=== PATIENT | female | born 1960 | race African-American/Black ===

== ENCOUNTER 2017-08-19 12:22 | Inpatient (IN) | payer SELFPAY ==
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
[2017-08-19 14:39] LABS: BASO % 2.2 % (0-2.0); EOS % 1.4 % (0-4.5); HEMATOCRIT 43.4 % (32.4-45.2); HEMOGLOBIN 14.2 GM/dL (10.7-15.3); LYMPH % 31.2 % (8-40); MCH 29.3 pg (25.7-33.7); MCHC 32.7 g/dl (32.0-36.0); MEAN CELL VOLUME 89.7 fl (80-96); MEAN PLT VOLUME 7.3 fl (7.5-11.1); MONO % 6.1 % (3.8-10.2); NEUT % 59.1 % (42.8-82.8); PLATELET COUNT 217 K/MM3 (134-434); RBC 4.83 M/mm3 (3.60-5.2); RDW 13.1 % (11.6-15.6); WHITE BLOOD COUNT 5.6 K/mm3 (4.0-10.0)
[2017-08-19 15:14] LABS: ANION GAP 7 (8-16); BILIRUBIN,TOTAL 0.5 mg/dL (0.2-1.0); BLOOD UREA NITROGEN 16 mg/dL (7-18); CALCIUM 8.7 mg/dL (8.5-10.1); CHLORIDE 108 mmol/L (98-107); CO2 27 mmol/L (21-32); CREATININE 0.8 mg/dL (0.55-1.02); GLUCOSE,RANDOM 83 mg/dL (74-106); SGPT/ALT 42 U/L (12-78); SODIUM 142 mmol/L (136-145); TOT PROT 7.5 g/dl (6.4-8.2)
[2017-08-19 15:15] LABS: ALK PHOS 103 U/L (45-117)
[2017-08-19 15:20] LABS: POTASSIUM 3.8 mmol/L (3.5-5.1); SGOT/AST 29 U/L (15-37)
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
[2017-08-19] MEDS ORDERED: ATORVASTATIN CA 80 MG TABLET (FP) PO ONE (22:00)
[2017-08-19] MEDS ORDERED: ASPIRIN 325 MG TABLET ONE (22:16)
[2017-08-19] MEDS ORDERED: ATORVASTATIN CA 80 MG TABLET (FP) ONE (22:16)
[2017-08-19] MEDS: ASPIRIN 325 MG TABLET PO SCH (22:42)
[2017-08-20 07:59] LABS: HEMATOCRIT 41.8 % (32.4-45.2); HEMOGLOBIN 13.6 GM/dL (10.7-15.3); MCH 29.2 pg (25.7-33.7); MCHC 32.5 g/dl (32.0-36.0); MEAN CELL VOLUME 90.1 fl (80-96); MEAN PLT VOLUME 7.7 fl (7.5-11.1); PLATELET COUNT 200 K/MM3 (134-434); RBC 4.64 M/mm3 (3.60-5.2); RDW 13.1 % (11.6-15.6); WHITE BLOOD COUNT 4.4 K/mm3 (4.0-10.0)
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
[2017-08-20 08:20] LABS: ALBUMIN 3.4 g/dl (3.4-5.0); ALK PHOS 93 U/L (45-117); ANION GAP 7 (8-16); BILIRUBIN,TOTAL 0.6 mg/dL (0.2-1.0); BLOOD UREA NITROGEN 17 mg/dL (7-18); CHLORIDE 109 mmol/L (98-107); CO2 26 mmol/L (21-32); CREATININE 0.8 mg/dL (0.55-1.02); GLUCOSE,RANDOM 84 mg/dL (74-106); MAGNESIUM 2.4 mg/dL (1.8-2.4); PHOSPHOROUS 3.6 mg/dL (2.5-4.9); POTASSIUM 3.5 mmol/L (3.5-5.1); SGOT/AST 15 U/L (15-37); SGPT/ALT 32 U/L (12-78); SODIUM 142 mmol/L (136-145); TOT PROT 6.7 g/dl (6.4-8.2)
--- NOTE | 2017-08-20 09:20 | EKG ---
Test Reason : Blood Pressure : / mmHG Vent. Rate : 079 BPM Atrial Rate : 079 BPM P-R Int : 172 ms QRS Dur : 088 ms QT Int : 392 ms P-R-T Axes : 038 001 023 degrees QTc Int : 449 ms NORMAL SINUS RHYTHM VOLTAGE CRITERIA FOR LEFT VENTRICULAR HYPERTROPHY NONSPECIFIC T WAVE ABNORMALITY ABNORMAL ECG WHEN COMPARED WITH ECG OF 30-DEC-2011 06:31, NO SIGNIFICANT CHANGE WAS FOUND Confirmed by LEONARDO GARCIA, BEATRICE ([id number]) on 08/20/2017 9:20:49 AM Referred By: Confirmed By:BEATRICE PATTERSON MD
[2017-08-20] MEDS: ASPIRIN 325 MG TABLET PO SCH (10:07)
[2017-08-20] MEDS: POTASSIUM CHLORIDE TABS 20 MEQ TABLET.ER (FP) PO ONE ×2 (10:07→10:14)
[2017-08-20] MEDS ORDERED: ASPIRIN 325 MG TABLET ONE (10:07)
[2017-08-20 11:23] VITALS: BMI 33.0
--- NOTE | 2017-08-20 12:15 | EKG ---
Test Reason : Blood Pressure : / mmHG Vent. Rate : 068 BPM Atrial Rate : 068 BPM P-R Int : 188 ms QRS Dur : 088 ms QT Int : 424 ms P-R-T Axes : 023 000 019 degrees QTc Int : 450 ms NORMAL SINUS RHYTHM VOLTAGE CRITERIA FOR LEFT VENTRICULAR HYPERTROPHY NONSPECIFIC T WAVE ABNORMALITY ABNORMAL ECG WHEN COMPARED WITH ECG OF 19-AUG-2017 14:46, NO SIGNIFICANT CHANGE WAS FOUND Confirmed by LEONARDO GARCIA, BEATRICE ([id number]) on 08/20/2017 12:15:52 PM Referred By: Confirmed By:BEATRICE PATTERSON MD
[2017-08-20] MEDS ORDERED: SODIUM CHLORIDE 1,000 ML IV SCH (12:45)
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
[2017-08-20 13:15] LABS: URINE APPEARANCE CLEAR; URINE BILIRUBIN NEGATIVE (NEGATIVE); URINE BLOOD 1+ (NEGATIVE); URINE COLOR YELLOW; URINE GLUCOSE (UA) NEGATIVE (NEGATIVE); URINE KETONE NEGATIVE (NEGATIVE); URINE LEUK ESTERASE NEGATIVE (NEGATIVE); URINE NITRITE NEGATIVE (NEGATIVE); URINE PROTEIN NEGATIVE (NEGATIVE); URINE UROBILINOGEN NEGATIVE mg/dL (0.2-1.0)
[2017-08-20 13:18] LABS: COCAINE, UR NEGATIVE ng/ml (CUTOFF=300); METHADONE, UR NEGATIVE ng/ml (CUTOFF=300); OPIATES, URI NEGATIVE ng/ml (CUTOFF=300); PHENCYCLIDINE,URINE NEGATIVE ng/ml (CUTOFF=25); URINE AMPHETAMINES NEGATIVE ng/ml (CUTOFF=500); URINE BARBITURATES NEGATIVE ng/ml (CUTOFF=200); URINE BENZODIAZEPINES NEGATIVE ng/ml (CUTOFF=200)
[2017-08-20 13:57] LABS: EPI CELLS RARE /HPF (FEW); URINE MUCUS RARE
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
[2017-08-20] MEDS: EZETIMIBE 10 MG TABLET (FP) PO SCH (14:50)
[2017-08-20] MEDS: HEPARIN NA (PORCINE) 5,000 UNITS/ML 1ML VIAL SQ SCH ×2 (14:53→21:51)
[2017-08-20] MEDS: PANTOPRAZOLE 40 MG TABLET (FP) PO SCH (14:53)
--- NOTE | 2017-08-20 17:45 | PN ---
Physical Exam: SUBJECTIVE: Patient seen and examined Pt reports that her weakness is improving. She denies headache, chest pain, SOB , abdominal pain, n/v/d/c, and dysuria. OBJECTIVE: Vital Signs Period Temp Pulse Resp BP Sys/Be Pulse Ox Last 24 Hr 97.7 F-98.9 F 64-73 14-18 122-154/70-91 97-99 GENERAL: The patient is awake, alert, and fully oriented, in no acute distress. HEENT: pupils round , R > L, reactive to light ( chronic per pt ) ., no facial droop, tongue and uvula at mid line , sensation in face NL. EOMI, NECK: Trachea midline, full range of motion, supple. LUNGS: Breath sounds equal, clear to auscultation bilaterally, no wheezes, no crackles, no accessory muscle use. HEART: Regular rate and rhythm, S1, S2 without murmur, rub or gallop. ABDOMEN: Soft, nontender, nondistended, normoactive bowel sounds, no guarding, no rebound, no hepatosplenomegaly, no masses. EXTREMITIES: 2+ pulses, warm, well-perfused, no edema. NEUROLOGICAL: pupils round , R > L, reactive to light ( chronic per pt ) ., no facial droop, tongue and uvula at mid line , sensation in face NL. EOMI, strength 5/5 in upper extremities proximally anad distally. LLE : 3/5 hip flexion , 4/5 Knee flexion an extension , 4/5 ankle dorsiflexion and plantar flexion . sensation to light touch NL. reflexes: 1+ biceps and knee jerk b/l Laboratory Results - last 24 hr 08/19/17 08/19/17 08/19/17 14:20 14:20 14:20 WBC RBC Hgb Hct MCV MCH MCHC RDW Plt Count MPV Sodium Potassium Chloride Carbon Dioxide Anion Gap BUN Creatinine Creat Clearance w eGFR Random Glucose Hemoglobin A1c % Calcium Phosphorus Magnesium Total Bilirubin AST ALT Alkaline Phosphatase Troponin I 0.03 Total Protein Albumin Triglycerides 112 Cholesterol 284 H Total LDL Cholesterol 194 H HDL Cholesterol 57 Vitamin B12 Serum Folate 39 H TSH 1.00 Urine Color Urine Appearance Urine pH Ur Specific [place] Urine Protein Urine Glucose (UA) Urine Ketones Urine Blood Urine Nitrite Urine Bilirubin Urine Urobilinogen Ur Leukocyte Esterase Urine WBC (Auto) Urine RBC (Auto) Ur Epithelial Cells Urine Mucus Opiates Screen Methadone Screen Barbiturate Screen Phencyclidine Screen Ur Amphetamines Screen MDMA (Ecstasy) Screen Benzodiazepines Screen Cocaine Screen U Marijuana (THC) Screen 08/20/17 08/20/17 08/20/17 06:00 06:00 06:00 WBC 4.4 RBC 4.64 Hgb 13.6 Hct 41.8 MCV 90.1 MCH 29.2 MCHC 32.5 RDW 13.1 Plt Count 200 MPV 7.7 Sodium 142 Potassium 3.5 Chloride 109 H Carbon Dioxide 26 Anion Gap 7 L BUN 17 Creatinine 0.8 Creat Clearance w eGFR > 60 Random Glucose 84 Hemoglobin A1c % 5.6 Calcium 9.0 Phosphorus 3.6 Magnesium 2.4 Total Bilirubin 0.6 AST 15 D ALT 32 D Alkaline Phosphatase 93 Troponin I Total Protein 6.7 Albumin 3.4 Triglycerides Cholesterol Total LDL Cholesterol HDL Cholesterol Vitamin B12 Serum Folate TSH Urine Color Urine Appearance Urine pH Ur Specific [place] Urine Protein Urine Glucose (UA) Urine Ketones Urine Blood Urine Nitrite Urine Bilirubin Urine Urobilinogen Ur Leukocyte Esterase Urine WBC (Auto) Urine RBC (Auto) Ur Epithelial Cells Urine Mucus Opiates Screen Methadone Screen Barbiturate Screen Phencyclidine Screen Ur Amphetamines Screen MDMA (Ecstasy) Screen Benzodiazepines Screen Cocaine Screen U Marijuana (THC) Screen 08/20/17 08/20/17 08/20/17 06:00 13:00 13:00 WBC RBC Hgb Hct MCV MCH MCHC RDW Plt Count MPV Sodium Potassium Chloride Carbon Dioxide Anion Gap BUN Creatinine Creat Clearance w eGFR Random Glucose Hemoglobin A1c % Calcium Phosphorus Magnesium Total Bilirubin AST ALT Alkaline Phosphatase Troponin I Total Protein Albumin Triglycerides Cholesterol Total LDL Cholesterol HDL Cholesterol Vitamin B12 529 Serum Folate TSH Urine Color Yellow Urine Appearance Clear Urine pH 6.0 Ur Specific [place] 1.032 Urine Protein Negative Urine Glucose (UA) Negative Urine Ketones Negative Urine Blood 1+ H Urine Nitrite Negative Urine Bilirubin Negative Urine Urobilinogen Negative Ur Leukocyte Esterase Negative Urine WBC (Auto) 2 Urine RBC (Auto) 3 Ur Epithelial Cells Rare Urine Mucus Rare Opiates Screen Negative Methadone Screen Negative Barbiturate Screen Negative Phencyclidine Screen Negative Ur Amphetamines Screen Negative MDMA (Ecstasy) Screen Negative Benzodiazepines Screen Negative Cocaine Screen Negative U Marijuana (THC) Screen Negative Active Medications Generic Name Dose Route Start Last Admin Trade Name Freq PRN Reason Stop Dose Admin Aspirin 325 mg 08/19/17 22:00 08/20/17 10:07 Asa - PO 325 mg DAILY YUDITH Administration Atorvastatin Calcium 80 mg 08/20/17 22:00 Lipitor - PO HS YUDITH Ezetimibe 10 mg 08/20/17 14:15 08/20/17 14:50 Zetia - PO 10 mg DAILY YUDITH Administration Heparin Sodium (Porcine) 5,000 unit 08/20/17 14:45 08/20/17 14:53 Heparin - SQ 5,000 unit TID YUDITH Administration Sodium Chloride 1,000 mls @ 100 mls/hr 08/20/17 12:45 08/20/17 13:42 Normal Saline - IV 08/21/17 12:44 100 mls/hr ASDIR YUDITH Administration Losartan Potassium 25 mg 08/21/17 10:00 Cozaar - PO DAILY YUDITH Pantoprazole Sodium 40 mg 08/20/17 14:45 08/20/17 14:53 Protonix - PO 40 mg DAILY YUDITH Administration ASSESSMENT/PLAN: 57F w/ hx of fibroids, anemia, and multiple of transfusions who presented with left-sided weakness, was found to have MRI evidence of an acute right pontine infarct. #acute right pontine infarct -continue ASA and lipitor -per cards, add losartan and zetia -per S&S, pt can tolerate regular diet w/ thin liquids -LUIGI and holter as out pt . d/w card #HLD -LDL of 194 -lipitor and zetia #heterogeneous thyroid nodules -TSH: wnl -f/u outpt for thyroid US #mandibular lesions -will f/u as out pt #FEN/ppx -NS @ 100cc/hr -K repleted -regular diet -protonix -SCDs Case discussed with attending, Dr. Avalos. -Carson Sood MD PGY1 Visit type - Emergency Visit Emergency Visit: Yes ED Registration Date: 08/19/17 Care time: The patient presented to the Emergency Department on the above date and was hospitalized for further evaluation of their emergent condition. - New Patient This patient is new to me today: No - Critical Care Critical Care patient: No
--- NOTE | 2017-08-20 20:31 | PN ---
Teaching Attending Note Name of Resident: Carson Sood ATTENDING PHYSICIAN STATEMENT I saw and evaluated the patient. I reviewed the resident's note and discussed the case with the resident. I agree with the resident's findings and plan as documented. SUBJECTIVE: seen at 10 am no fever or chills, L sided weakness better OBJECTIVE: NAD CV: RRR Lung s: CTAB ext : no edema Neuro : pupils round , R > L, reactive to light ( chronic per pt ) ., no facial droop, tongue and uvula at mid line , sensation in face NL. EOMI, strength 5/5 in upper extremities proximally anad distally. LLE : 3/5 hip flexion , 4/5 Knee flexion an extension , 4/5 ankle dorsiflexion and plantar flexion . sensation to light touch NL. reflexes: 1+ biceps and knee jerk b/l ASSESSMENT AND PLAN: 57 y/o lady with h/o anemia who presented with sudden onset L sided weakness. she was found to have acute R pontine infarct 1- Acute R pontine CVA : with old L sided subcortical and L basal ganglia infarcts . N o dissection was seen on CTA . cont gentle hydration as received IV dye x 2 cont statin and ASA tele speech , MBS PT 2- accidental b/l thyroid nodules. l TSH f/u with US as outpt 3- mandibular lesions: will f/u as otu pt
[2017-08-20] MEDS ORDERED: ATORVASTATIN CA 40 MG TABLET (FP) PO SCH ×2 (22:00)
[2017-08-21] MEDS: HEPARIN NA (PORCINE) 5,000 UNITS/ML 1ML VIAL SQ SCH ×2 (05:34→13:52)
[2017-08-21 08:17] LABS: BASO % 0.8 % (0-2.0); EOS % 2.3 % (0-4.5); HEMATOCRIT 41.9 % (32.4-45.2); HEMOGLOBIN 13.5 GM/dL (10.7-15.3); LYMPH % 34.3 % (8-40); MCH 28.9 pg (25.7-33.7); MCHC 32.1 g/dl (32.0-36.0); MEAN CELL VOLUME 90.1 fl (80-96); MEAN PLT VOLUME 7.5 fl (7.5-11.1); MONO % 7.1 % (3.8-10.2); NEUT % 55.5 % (42.8-82.8); PLATELET COUNT 200 K/MM3 (134-434); RBC 4.66 M/mm3 (3.60-5.2); WHITE BLOOD COUNT 3.8 K/mm3 (4.0-10.0)
[2017-08-21 08:45] LABS: CHLORIDE 110 mmol/L (98-107); POTASSIUM 3.7 mmol/L (3.5-5.1); SODIUM 142 mmol/L (136-145)
[2017-08-21 09:09] LABS: ALBUMIN 3.3 g/dl (3.4-5.0); ALK PHOS 92 U/L (45-117); ANION GAP 6 (8-16); BILIRUBIN,TOTAL 0.9 mg/dL (0.2-1.0); BLOOD UREA NITROGEN 12 mg/dL (7-18); CALCIUM 8.2 mg/dL (8.5-10.1); CO2 26 mmol/L (21-32); CREATININE 0.8 mg/dL (0.55-1.02); GLUCOSE,RANDOM 89 mg/dL (74-106); SGOT/AST 13 U/L (15-37); SGPT/ALT 28 U/L (12-78); TOT PROT 6.5 g/dl (6.4-8.2)
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
[2017-08-21] MEDS: PANTOPRAZOLE 40 MG TABLET (FP) PO SCH (09:47)
[2017-08-21] MEDS: ASPIRIN 325 MG TABLET PO SCH (09:47)
[2017-08-21] MEDS: EZETIMIBE 10 MG TABLET (FP) PO SCH (09:48)
[2017-08-21] MEDS ORDERED: LOSARTAN POTASSIUM 25 MG TABLET PO SCH (10:00)
--- NOTE | 2017-08-21 10:21 | PN ---
Progress Note, Physician History of Present Illness: Left-sided weakness improving. - Current Medication List Current Medications: Active Medications Aspirin (Asa -) 325 mg PO DAILY [facility] Last Admin: 08/21/17 09:47 Dose: 325 mg Atorvastatin Calcium (Lipitor -) 80 mg PO HS [facility] Last Admin: 08/20/17 21:51 Dose: 80 mg Ezetimibe (Zetia -) 10 mg PO DAILY [facility] Last Admin: 08/21/17 09:48 Dose: 10 mg Heparin Sodium (Porcine) (Heparin -) 5,000 unit SQ TID [facility] Last Admin: 08/21/17 05:34 Dose: 5,000 unit Sodium Chloride (Normal Saline -) 1,000 mls @ 100 mls/hr IV ASDIR [facility] Stop: 08/21/17 12:44 Last Admin: 08/20/17 13:42 Dose: 100 mls/hr Losartan Potassium (Cozaar -) 25 mg PO DAILY [facility] Last Admin: 08/21/17 09:47 Dose: 25 mg Pantoprazole Sodium (Protonix -) 40 mg PO DAILY [facility] Last Admin: 08/21/17 09:47 Dose: 40 mg - Objective Vital Signs: Vital Signs Temperature 98 F 08/21/17 10:00 Pulse Rate 74 08/21/17 10:00 Respiratory Rate 18 08/21/17 10:00 Blood Pressure 164/90 08/21/17 10:00 O2 Sat by Pulse Oximetry (%) 97 08/21/17 02:00 Constitutional: Yes: No Distress, Calm Neck: Yes: Supple Cardiovascular: Yes: Regular Rate and Rhythm Respiratory: Yes: Regular, CTA Bilaterally Gastrointestinal: Yes: Normal Bowel Sounds, Soft Edema: No Labs: CBC, BMP 08/21/17 07:09 08/21/17 07:09 - ....Imaging Cat Scan: Report Reviewed (CTA neck without sig stenosis) EKG: Report Reviewed (Tele: NSR w/o PAF) Problem List - Problems (1) Right pontine stroke Code(s): I63.50 - CEREB INFRC DUE TO UNSP OCCLS OR STENOS OF UNSP CEREB ARTERY (2) Hypertensive cardiomyopathy Code(s): I11.9 - HYPERTENSIVE HEART DISEASE WITHOUT HEART FAILURE; I43 - CARDIOMYOPATHY IN DISEASES CLASSIFIED ELSEWHERE Qualifiers: Heart failure presence: without heart failure Qualified Code(s): I11.9 - Hypertensive heart disease without heart failure; I43 - Cardiomyopathy in diseases classified elsewhere; I43 - Cardiomyopathy in diseases classified elsewhere; I43 - Cardiomyopathy in diseases classified elsewhere; I43 - Cardiomyopathy in diseases classified elsewhere (3) Hyperlipidemia Code(s): E78.5 - HYPERLIPIDEMIA, UNSPECIFIED Qualifiers: Hyperlipidemia type: pure hypercholesterolemia Qualified Code(s): E78.00 - Pure hypercholesterolemia, unspecified; E78.0 - Pure hypercholesterolemia Assessment/Plan 08/19/17 Normal LV size and fxn, mild-modMR, mild TR, mild CHANDA 1. Acute pontine stroke 2. HTN/HCVD 3. Hyperlipidemia P:1. ASA 325 qd, Lipitor 80 qd, increase losartan 50 qd, Zetia 10 qd, may require PCSK9 as outpatient if LDL does not reach goal 2. engine monitor r/o PAF thus far negative, consider outpatient arrhythmia monitor if unremarkable 3. LUIGI recommended by neurology, may be performed as outpatient americo with no PAF on monitor 4. DVT and GI prophylaxis, await PT eval.
--- NOTE | 2017-08-21 11:50 | PN ---
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 Tolerating diet well without overt signs of dysphagia. Selected Entries 08/21/17 08/21/17 08/21/17 02:00 06:00 10:00 Breakfast Temperature 98 F 98.6 F 98 F 08/21/17 11:15 Breakfast 100% Temperature No further f/u indicated.
--- NOTE | 2017-08-21 17:12 | PN ---
Teaching Attending Note Name of Resident: Carson Sood ATTENDING PHYSICIAN STATEMENT I saw and evaluated the patient. I reviewed the resident's note and discussed the case with the resident. I agree with the resident's findings and plan as documented. SUBJECTIVE: no fever or chills, feels better today , gait has much improved OBJECTIVE: NAD CV: RRR Lungs: CTAB ext : no edema Neuro: pupils round, R > L, reactive to light ., no facial droop, tongue and uvula at mid line, sensation in face NL. EOMI, strength 5/5 in upper and lower extremities proximally and distally.. sensation to light touch decreased in L side of body and face Reflexes: 2+ knee jerk and biceps b/l ASSESSMENT AND PLAN: 57 y/o lady with h/o anemia who presented with sudden onset L sided weakness. she was found to have acute R pontine infarct 1- Acute R pontine CVA: with old L sided subcortical and L basal ganglia infarcts . No dissection was seen on CTA . cont statin and ASA zetia and ARB regular diet , ow salt and fat LUIGI and holter as out pt . d/w card 2- accidental b/l thyroid nodules. NL TSH f/u with US as outpt 3- mandibular lesions: will f/u as out pt I walked patient myself, steady and doing well. dc home
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
[2017-08-21 19:26] VITALS: BP 167/94; PULSE 70; TEMP 98.8
== END 2017-08-21 18:47 | disposition home or self-care (01) | DRG 45 ==
LOC: JER 12:22 → JERBED 20:01 → OBSVTOIN 21:54 → J4W 08-20 18:55
PROVIDERS: ADMIT Internal Medicine; ATTEND Internal Medicine
DX: I63.8 Other cerebral infarction (principal); R42 Dizziness and giddiness; R20.0 Anesthesia of skin; I51.7 Cardiomegaly; D25.9 Leiomyoma of uterus, unspecified; D64.9 Anemia, unspecified; R29.705 NIHSS score 5; I11.9 Hypertensive heart disease without heart failure; E78.5 Hyperlipidemia, unspecified; E04.2 Nontoxic multinodular goiter; J32.0 Chronic maxillary sinusitis; G81.94 Hemiplegia, unspecified affecting left nondominant side
CPT/HCPCS: 36415; 70496-TC; 70498-TC; 70551-TC; 80053; 80061; 80307; 81003; 81015; 82607; 82746; 83036; 83721; 83735; 84100; 84443; 84484; 85025; 85027; 93005; 93010; 93306-TC; 93880-TC; 97116-GP; 97161-GP; 99285-25; G0378; J1644

== ENCOUNTER 2017-09-24 16:26 | Inpatient (IN) | payer OTHER ==
--- NOTE | 2017-09-24 17:39 | PDOC ---
Rapid Medical Evaluation Time Seen by Provider: 09/24/17 17:32 Medical Evaluation: Allergies Allergy/AdvReac Type Severity Reaction Status Date / Time No Known Allergies Allergy Verified 08/19/17 12:32 09/24/17 17:32 I have performed a brief in-person evaluation of this patient. The patient presents with a chief complaint of: right eye "shadow with colors" since friday, gradual onset severe PATEL all last night "worst headache of life", feels like i'm "walking slower" - had stroke aug 19, sent by Dr. Rodarte Pertinent physical exam findings: no focal neuro deficits on exam I have ordered the following: head CT, labs The patient will proceed to the ED for further evaluation. Discharge Disposition - Diagnosis Headache - Referrals - Patient Instructions - Post Discharge Activity
[2017-09-24 18:18] LABS: BASO % 0.9 % (0-2.0); EOS % 1.4 % (0-4.5); HEMATOCRIT 43.3 % (32.4-45.2); HEMOGLOBIN 14.5 GM/dL (10.7-15.3); LYMPH % 34.7 % (8-40); MCH 29.6 pg (25.7-33.7); MCHC 33.5 g/dl (32.0-36.0); MEAN CELL VOLUME 88.4 fl (80-96); MEAN PLT VOLUME 7.6 fl (7.5-11.1); MONO % 8.4 % (3.8-10.2); NEUT % 54.6 % (42.8-82.8); PLATELET COUNT 198 K/MM3 (134-434); RBC 4.89 M/mm3 (3.60-5.2); RDW 12.8 % (11.6-15.6)
[2017-09-24 18:55] LABS: INR 1.1 (0.82-1.09); PROTHROMBIN TIME (PATIENT) 12.4 SEC (9.98-11.88)
[2017-09-24 19:13] LABS: ALBUMIN 4.3 g/dl (3.4-5.0); ANION GAP 9 (8-16); BILIRUBIN,TOTAL 0.9 mg/dL (0.2-1.0); BLOOD UREA NITROGEN 8 mg/dL (7-18); CALCIUM 9.7 mg/dL (8.5-10.1); CHLORIDE 106 mmol/L (98-107); CO2 27 mmol/L (21-32); CREATININE 0.9 mg/dL (0.55-1.02); GLUCOSE,RANDOM 101 mg/dL (74-106); POTASSIUM 3.6 mmol/L (3.5-5.1); SGOT/AST 15 U/L (15-37); SGPT/ALT 27 U/L (12-78); SODIUM 142 mmol/L (136-145); TOT PROT 7.8 g/dl (6.4-8.2)
[2017-09-24 19:15] LABS: ALK PHOS 90 U/L (45-117)
--- NOTE | 2017-09-24 21:15 | PDOC ---
History of Present Illness - General Chief Complaint: Headache Stated Complaint: PCP SENT/HEADACHE Time Seen by Provider: 09/24/17 17:32 History Source: Patient - History of Present Illness Initial Comments: 09/24/17 21:38 57-year-old female complaining of right-sided headache which started yesterday and this morning radiating to the occipital head. Patient reports that 2 days ago noted some visual changes where shadows were seen with colors. patient s/p CVA " right Pontine infarct" Aug 19 patient currently on aspirin daily. Past History - Past Medical History Allergies/Adverse Reactions: Allergies Allergy/AdvReac Type Severity Reaction Status Date / Time No Known Allergies Allergy Verified 09/24/17 17:32 Home Medications: Ambulatory Orders Aspirin [ASA -] 325 mg PO DAILY #30 tablet 08/21/17 Atorvastatin Ca [Lipitor] 80 mg PO HS #60 tablet 08/21/17 Ezetimibe [Zetia -] 10 mg PO DAILY #30 tablet 08/21/17 Losartan Potassium [Cozaar -] 50 mg PO DAILY #30 tablet 08/21/17 Pantoprazole Sodium [Protonix -] 40 mg PO DAILY #30 tablet.ec 08/21/17 Anemia: Yes (BLOOD TRANSFUSIONS) Cardiac Disorders: Yes (ENLARGED HEART) CVA: Yes (LT SIDE WEAKNESS) COPD: No - Immunization History Immunization Up to Date: Yes - Suicide/Smoking/Psychosocial Hx Smoking Status: No Smoking History: Never smoked Have you smoked in the past 12 months: No Number of Cigarettes Smoked Daily: 0 Information on smoking cessation initiated: No Hx Alcohol Use: No Drug/Substance Use Hx: No Substance Use Type: None Review of Systems - Review of Systems Able to Perform ROS?: Yes Is the patient limited Georgian proficient: No HEENTM: Yes: Recent change in vision ABD/GI: Yes: Diarrhea, Nausea Integumentary: No: Symptoms Reported, See HPI, Bruising, Change in Color, Change in Hair/Nails, Dryness, Erythema, Flushing, Lesions, Lumps, Pallor, Pruritus, Rash, Sweating, Other Neurological: Yes: Headache. No: Symptoms reported, See HPI, Numbness, Paresthesia, Pre-Existing Deficit, Seizure, Tingling, Tremors, Weakness, Unsteady Gait, Ataxia, Dizziness, Other *Physical Exam - Vital Signs Last Vital Signs Temp Pulse Resp BP Pulse Ox 98.2 F 89 16 153/96 98 09/24/17 17:34 09/24/17 17:34 09/24/17 17:34 09/24/17 17:34 09/24/17 17:34 - Physical Exam General Appearance: Yes: Appropriately Dressed Respiratory/Chest: positive: Lungs Clear, Normal Breath Sounds Cardiovascular: positive: Regular Rhythm, Regular Rate Gastrointestinal/Abdominal: positive: Normal Bowel Sounds, Soft. negative: Tender Musculoskeletal: positive: Normal Inspection Neurologic: positive: Alert, Normal Mood/Affect, Other (see NIH stroke scale. ) Heart Score/ECG Review - ECG Intrepretation Rhythm: Regular Rhythm Comment:: 09/24/17 22:40 NSR: 69 bpm, T wave abnormality consider lateral ischemia ED Treatment Course - LABORATORY CBC & Chemistry Diagram: 09/24/17 18:00 09/24/17 18:06 - ADDITIONAL ORDERS Additional order review: Laboratory Results 09/24/17 09/24/17 18:06 18:06 PT with INR 12.40 H INR 1.10 Sodium 142 Potassium 3.6 Chloride 106 Carbon Dioxide 27 Anion Gap 9 BUN 8 Creatinine 0.9 Creat Clearance w eGFR > 60 Random Glucose 101 Calcium 9.7 Total Bilirubin 0.9 AST 15 ALT 27 Alkaline Phosphatase 90 Creatine Kinase 153 Creatine Kinase Index 0.7 CK-MB (CK-2) 1.205 Troponin I 0.05 Total Protein 7.8 Albumin 4.3 09/24/17 18:00 RBC 4.89 MCV 88.4 MCHC 33.5 RDW 12.8 MPV 7.6 Neutrophils % 54.6 Lymphocytes % 34.7 Monocytes % 8.4 Eosinophils % 1.4 Basophils % 0.9 Progress Note - Progress Note Progress Note: A: Acute Medical Decision Making - Critical Care Time Total Critical Care Time (minutes): 60 Critical Care Statement: The care of this patient involved high complexity decision making to prevent further life threatening deterioration of the patient 's condition and/or to evaluate & treat vital organ system(s) failure or risk of failure. - Medical Decision Making 09/24/17 21:00 Patient signed out to [facility] (ICU) . accepted for ICU admission. patient signed out to Dr. Santos/ Jean for further management of care. *DC/Admit/Observation/Transfer Diagnosis at time of Disposition: Hemorrhagic cerebrovascular accident (CVA) Headache Qualifiers: Headache type: unspecified Headache chronicity pattern: acute headache Intractability: not intractable Qualified Code(s): R51 - Headache - Discharge Dispostion Admit: Yes - Referrals - Patient Instructions - Post Discharge Activity NIH Stroke Scale - Last Known Well Date/Time & Onset Date Last Known Well: 09/21/17 - Initial Evaluation Level of consciousness: Alert Ask patient the month and their age: Answers both correctly Ask patient to open & close eyes; make fist and let go: Obeys both correctly Best gaze (horizontal eye movement): Normal Visual field testing: Partial hemianopia Facial paresis (Show teeth/raise eyebrows/close eyes tight): Minor paralysis ( flattened nasolabial fold, asymmetry on smiling) Motor Function: Left Arm: Normal Motor Function: Right Arm: Normal (extends arm 90 (or 45) degrees for 10 seconds without drift Motor Function: Left Leg: Drift Motor Function: Right Leg: Normal (extends leg 30 degrees for 5 seconds without drift) Limb Ataxia: Present in one limb Sensory(Use pinprick test arms,legs,trunk,face/side to side): Normal Best language (Describe picture, name items, read sentences): No Aphasia Dysarthria (read several words): Normal articulation Extinction and Inattention: No abnormality - Total Score NIH Stroke Scale Score: 4
[2017-09-24] MEDS ORDERED: NICARDIPINE 25 MG in DEXTROSE 5%-WATER - 240 ML IVPB SCH (22:00)
[2017-09-24] MEDS ORDERED: niCARdipine HCL 25 MG/10 ML AMPUL IVPB ONE (22:18)
--- NOTE | 2017-09-24 22:19 | CON.NEURO ---
Consult Consult Specialty:: NEUROLOGY- MEGAN GARCIA-FOR DR. CONTRERAS Reason for Consultation:: Headache/intraparenchymal hge - History of Present Illness History of Present Illness: 57-year-old female complaining of right-sided headache which started yesterday and this morning radiating to the occipital head. Patient reports that 2 days ago noted some visual changes where shadows were seen with colors. patient s/p CVA " right Pontine infarct" Aug 19 patient currently on aspirin daily. Pt. also tells me she had a "ablation" a few years ago for afib, was on ASA at home, she has a hx. of HTN, Hyperlipidemia. She reports Friday night experiencing "flashes and reflections" in right visual field , last night had headache, sudden onset holocephalgic with nausea, 6/10 intensity, this morning PATEL recurred with 10/10 intensity, she had a bout of diarrhea and PATEL disappeared. Denies all other neurologic symptoms. 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2 F 09/24/17 17:34 Pulse Rate 89 09/24/17 17:34 Respiratory Rate 16 09/24/17 17:34 Blood Pressure 153/96 09/24/17 17:34 O2 Sat by Pulse Oximetry (%) 98 09/24/17 17:34 Labs: CBC, BMP 09/24/17 18:00 09/24/17 18:06 INR, PTT INR 1.10 (0.82-1.09) 09/24/17 18:06 - Neuro Exam Level Of Consciousness: Yes: Alert, Oriented to Person, Oriented to Place, Oriented to Time Eyes: Yes: JOSE CARLOS (?? right inferior quadrantanopsia) Cranial Nerves II-XII Intact: No (slight left diminished NLF) DTR's: 2+ Left Bicep, 2+ Right Bicep, 2+ Left Tricep, 2+ Right Tricep, 2+ Left Brachioradialis, 2+ Right Brachioradialis, 2+ Left Achilles, 2+ Right Achilles Babinski: Absent Response to light touch: Normal Response to pain prick: Normal Response to temperature: Normal Response to vibration: Normal Motor Strength: 5/5: Left Arm, Right Arm, Left Leg, Right Leg Gait: Normal Imaging - Results Cat Scan: Report Reviewed (small 2.4x 1.3 cm acute hge in left occipital lobe abutting trigone of left occipital horn with minimal hge in occipital horn trigone.) Assessment/Plan Pt. with acute left occipital lobe hge-etiologies include underlying avm, venous hge, less likely mass. There is minimal edema surrounding hge, no mass effect/shift Suggest: Admit to ICU Hold ASA Keep hob at 60 degrees MRI brain and MRA in am. Neurosurgery consult- Dr. Luna-I have informed of patient Thank you, Aurora Garcia MD.
[2017-09-24 22:27] LABS: INR 1.13 (0.82-1.09); PROTHROMBIN TIME (PATIENT) 12.8 SEC (9.98-11.88)
[2017-09-24 22:30] LABS: ACTIVATED PTT 35.4 SECONDS (26.9-34.4)
--- NOTE | 2017-09-25 00:01 | HP ---
CHIEF COMPLAINT: Headache, vision changes PCP: Dr. Pravin Urbina HISTORY OF PRESENT ILLNESS: The patient is a 57 yo f w/ PMH HTN, CVA w/ residual left sided weakness who comes into the ED c/o vision changes and headache for the last 2 days. Patient states that her symptoms began Friday when she experienced visual changes in the right upper outer quadrant of her vision. Patient describes these changes as "jagged edges with different colors in them." On friday night into friday, the patient began to develop a sudden onset, 9/10 in intensity headache which involved her whole head and was worst in the occipital region. Over the course of the day, the headache increased in intensity and became associated with nausea and diarrhea. Patient states her headache is no longer present, but continues to experience visual changes which she now describes as "shadows and colors." Patient denies chest pain, SOB, dizziness, weakness. ER course was notable for: (1) SBP 153/96 (2) CT showing 2.4x 1.3x 1.3 cm hemorrhage in the left occipital horn (3) Recent Travel: none PAST MEDICAL HISTORY: Anemia Cardiomengaly HLD HTN CVA (right pontine infarct and left sided residual weakness) on 08/19/17 PAST SURGICAL HISTORY: Embolization for uterine fibroids Social History: Smoking: denies Alcohol: denies Drugs: denies Family History: CAD and AMI in two bothers another brother on hemodialysis Allergies No Known Allergies Allergy (Verified 09/24/17 17:32) HOME MEDICATIONS: Home Medications Medication Instructions Recorded Aspirin [ASA -] 325 mg PO DAILY #30 tablet 08/21/17 Atorvastatin Ca [Lipitor] 80 mg PO HS #60 tablet 08/21/17 Ezetimibe [Zetia -] 10 mg PO DAILY #30 tablet 08/21/17 Losartan Potassium [Cozaar -] 50 mg PO DAILY #30 tablet 08/21/17 Pantoprazole Sodium [Protonix -] 40 mg PO DAILY #30 tablet.ec 08/21/17 REVIEW OF SYSTEMS CONSTITUTIONAL: Absent: fever, chills, diaphoresis, generalized weakness, malaise, loss of appetite, weight change HEENT: visual changes Absent: rhinorrhea, nasal congestion, throat pain, throat swelling, difficulty swallowing, mouth swelling, ear pain, eye pain. CARDIOVASCULAR: Absent: chest pain, syncope, palpitations, irregular heart rate, lightheadedness , peripheral edema RESPIRATORY: Absent: cough, shortness of breath, dyspnea with exertion, orthopnea, wheezing, stridor, hemoptysis GASTROINTESTINAL: Absent: abdominal pain, abdominal distension, nausea, vomiting, diarrhea, constipation, melena, hematochezia GENITOURINARY: Absent: dysuria, frequency, urgency, hesitancy, hematuria, flank pain, genital pain MUSCULOSKELETAL: Absent: myalgia, arthralgia, joint swelling, back pain, neck pain SKIN: Absent: rash, itching, pallor HEMATOLOGIC/IMMUNOLOGIC: Absent: easy bleeding, easy bruising, lymphadenopathy, frequent infections ENDOCRINE: Absent: unexplained weight gain, unexplained weight loss, heat intolerance, cold intolerance NEUROLOGIC: headache Absent: focal weakness or paresthesias, dizziness, unsteady gait, seizure, mental status changes, bladder or bowel incontinence PSYCHIATRIC: Absent: anxiety, depression, suicidal or homicidal ideation, hallucinations. PHYSICAL EXAMINATION Vital Signs - 24 hr 09/24/17 09/24/17 09/24/17 17:34 23:00 23:37 Temperature 98.2 F Pulse Rate 89 81 Pulse Rate [ 71 Left Radial] Respiratory 16 Rate Blood Pressure 153/96 166/93 Blood Pressure 151/81 [Left Arm] O2 Sat by Pulse 98 Oximetry (%) GENERAL: Awake, alert, and fully oriented, in no acute distress. HEAD: Normal with no signs of trauma. EYES: Pupils equal, round and reactive to light, extraocular movements intact, sclera anicteric, conjunctiva clear. No lid lag. NECK: Normal range of motion, supple without lymphadenopathy, JVD, or masses. LUNGS: Breath sounds equal, clear to auscultation bilaterally. No wheezes, and no crackles. No accessory muscle use. HEART: Regular rate and rhythm, normal S1 and S2 without murmur, rub or gallop. ABDOMEN: Soft, nontender, not distended, normoactive bowel sounds, no guarding, no rebound, no masses. No hepatomegaly or splenomegaly. NEUROLOGICAL: Cranial nerves II-X intact. Normal speech. gait not observed. Strength 5/5 in all 4 extremities. Decrease sensation over right arm and lower face PSYCHIATRIC: Cooperative. Good eye contact. Appropriate mood and affect. SKIN: Warm, dry, normal turgor, no rashes or lesions noted, normal capillary refill. Laboratory Results - last 24 hr 09/24/17 09/24/17 09/24/17 18:00 18:06 18:06 WBC 6.0 D RBC 4.89 Hgb 14.5 Hct 43.3 MCV 88.4 MCH 29.6 MCHC 33.5 RDW 12.8 Plt Count 198 MPV 7.6 Neutrophils % 54.6 Lymphocytes % 34.7 Monocytes % 8.4 Eosinophils % 1.4 Basophils % 0.9 PT with INR 12.40 H INR 1.10 PTT (Actin FS) Sodium 142 Potassium 3.6 Chloride 106 Carbon Dioxide 27 Anion Gap 9 BUN 8 Creatinine 0.9 Creat Clearance w eGFR > 60 Random Glucose 101 Calcium 9.7 Total Bilirubin 0.9 AST 15 ALT 27 Alkaline Phosphatase 90 Creatine Kinase 153 Creatine Kinase Index 0.7 CK-MB (CK-2) 1.205 Troponin I 0.05 Total Protein 7.8 Albumin 4.3 Blood Type Antibody Screen 09/24/17 09/24/17 21:32 21:32 WBC RBC Hgb Hct MCV MCH MCHC RDW Plt Count MPV Neutrophils % Lymphocytes % Monocytes % Eosinophils % Basophils % PT with INR 12.80 H INR 1.13 PTT (Actin FS) 35.4 H Sodium Potassium Chloride Carbon Dioxide Anion Gap BUN Creatinine Creat Clearance w eGFR Random Glucose Calcium Total Bilirubin AST ALT Alkaline Phosphatase Creatine Kinase Creatine Kinase Index CK-MB (CK-2) Troponin I Total Protein Albumin Blood Type O POSITIVE Antibody Screen Negative ASSESSMENT/PLAN: The patient is a 57 yo f being admitted to the ICU for left occipital hemorrhagic stroke. #Left occipital hemorrhagic stroke -full stroke workup noted on previous admission; no need to repeat -Neuro has seen the patient in the ED -Neurosurgery consulted -Hold ASA -Head of bed elevated to 60 degrees -consider MRI/MRA in AM -Neuro checks Q2H -physical therapy consult -speech and swallow consult -CBC, CMP, coags, type and screen, mag, phos in AM #HTN -s/p nifedipine in ED -titrate BP meds to maintain SBP <140 -Holding home meds for now #HLD -holding home meds for now #Hx of anemia -pt w/ normal Hb today -will monitor H&H #FEN -no fluids indicated at this time -lytes WNL, will monitor -NPO #prophy -DVT: SCDs #Dispo -Admit to ICU Visit type - Emergency Visit Emergency Visit: Yes ED Registration Date: 09/24/17 Care time: The patient presented to the Emergency Department on the above date and was hospitalized for further evaluation of their emergent condition. - New Patient This patient is new to me today: Yes Date on this admission: 09/25/17 - Critical Care Critical Care patient: Yes Total Critical Care Time (in minutes): 40 Critical Care Statement: The care of this patient involved high complexity decision making to prevent further life threatening deterioration of the patient 's condition and/or to evaluate & treat vital organ system(s) failure or risk of failure.
--- NOTE | 2017-09-25 00:12 | PN ---
Teaching Attending Note Name of Resident: Sandip Winters ATTENDING PHYSICIAN STATEMENT I saw and evaluated the patient. I reviewed the resident's note and discussed the case with the resident. I agree with the resident's findings and plan as documented. SUBJECTIVE: 57yo F with PMH CVA with residual L sided weakness, HTN, fibroids and anemia presented to the ER with sudden onset of PATEL with visual changes. Visual changes began 2 days ago in the R eye. pt reports the edge of items are blurred, Like something is in her eye. Yesterday morning started to develop PATEL that affected the entire head. Her vision worsened with distorted colors. also noted to feel more weak on the L side. denies CP, SOB, fever, chills, N/V/C/D, gait instability. states she did not take her medications today. but has been complaint. OBJECTIVE: Last Vital Signs Temp Pulse Resp BP Pulse Ox 98.2 F 71 16 151/81 98 09/24/17 17:34 09/24/17 23:37 09/24/17 17:34 09/24/17 23:37 09/24/17 17:34 General NAD CV S1 S2 RRR no murmur/rub/gallop Lungs CTA B/L no wheezing/rales/rhonchi Neuro CN II-XII grossly intact, decreased sensation R forearm in radial distribution, strength equal in B/L UE, 4/5 LLE with decreased sensation. 5/5 RLE with intact sensation. negative pronator drift, negative dysmetria/ dysdakinesia, negative heel to britton, gait testing deferred ASSESSMENT AND PLAN: 57yo F with PMH CVA with residual L sided weakness, HTN, fibroids and anemia presented to the ER with sudden onset of PATEL with visual changes and found to have an acute L occipital hemorrhage 1. Acute L occipital Hemorrhage- MICU admission. NIHSS 4. MRI/MRA brain in the AM. frequent neurochecks. elevated HOB. Neuro and neurosurg consulted. will consult ELEVATOR EXAMINER and PT. will be monitored in MICU on continuous cardiac monitoring. reviewed recent workup done last month, echo/carotid/TSH/lipid panel. no need to repeat at this time. hold asa 2. HTN- permissive HTN. started on nicardipine ggt in the ER. titrate to SBP < 140. 3. anemia- Hgb at baseline. no inidcation for txn. 4. DVT ppx- SCD The care of this patient involved high complexity decision making to prevent further life threatening deterioration of the patient's condition and/or to evaluate & treat vital organ system(s) failure or risk of failure. 38 minutes
[2017-09-25 00:46] VITALS: BMI 29.3
--- NOTE | 2017-09-25 01:14 | CONSULT ---
Consult Consult Specialty:: Pulm/CCM Reason for Consultation:: Hemorrhagic stroke - History of Present Illness Chief Complaint: Lt sided weakness History of Present Illness: 57 damir PMH HTN, HLD, Rt pontine CVA in 08/19/17 with mild residual left sided weakness who presents to ED with c/o vision changes in rt eye and headache x 2 days. Patient states on Friday she experienced visual color changes in the right eye followed by severe headache mostly in the occipital region. She also c /o nausea and 2 episodes of loose stoools. She denied syncope, dizziness, chest pain, SOB or weakness. In the ED BP 150-170/80, HR 89, T98.2, O2 sat 98% on room air. CT head s/f 2.4x 1.3x 1.3 cm hemorrhage abutting the trigone and left occipital horn of thr left lateral ventricle with scant perihemorrhage edema. Neuro and neurosurgery consulted. ASA held. Started on cardene drip for SBP goal< 140. No indication for surgical intervention at this time. She was transferred to ICU for observation. In ICU rec'd A+O x3, no c/o headache, vision change or weakness. BP 142/82 on Cardene drip 2.5mg/hr. 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[employer] Home Medications - Allergies Allergies/Adverse Reactions: Allergies Allergy/AdvReac Type Severity Reaction Status Date / Time No Known Allergies Allergy Verified 09/24/17 17:32 - Home Medications Home Medications: Ambulatory Orders Aspirin [ASA -] 325 mg PO DAILY #30 tablet 08/21/17 Atorvastatin Ca [Lipitor] 80 mg PO HS #60 tablet 08/21/17 Ezetimibe [Zetia -] 10 mg PO DAILY #30 tablet 08/21/17 Losartan Potassium [Cozaar -] 50 mg PO DAILY #30 tablet 08/21/17 Pantoprazole Sodium [Protonix -] 40 mg PO DAILY #30 tablet.ec 08/21/17 Family Disease History - Family Disease History Family History: Unremarkable Review of Systems - Review of Systems Constitutional: reports: No Symptoms Eyes: reports: Recent Change in Vision HENT: reports: No Symptoms Neck: reports: No Symptoms Cardiovascular: reports: No Symptoms Respiratory: reports: No Symptoms Gastrointestinal: reports: No Symptoms, Diarrhea, Nausea Genitourinary: reports: No Symptoms Musculoskeletal: reports: No Symptoms Integumentary: reports: No Symptoms Neurological: reports: Headache, Weakness Endocrine: reports: No Symptoms Hematology/Lymphatic: reports: No Symptoms Psychiatric: reports: No Symptoms Physical Exam Vital Signs: Vital Signs Temperature 98.4 F 09/25/17 00:30 Pulse Rate 67 09/25/17 00:30 Respiratory Rate 13 09/25/17 00:30 Blood Pressure 143/83 09/25/17 00:30 O2 Sat by Pulse Oximetry (%) 99 09/25/17 00:30 Constitutional: Yes: Well Nourished, No Distress, Calm Eyes: Yes: Other (Anisocoria Rt pupil>Lt with minimal reaction to light; Lt pupil with nl reaction) HENT: Yes: Atraumatic, Normocephalic Neck: Yes: Supple, Trachea Midline Cardiovascular: Yes: Regular Rate and Rhythm, S1, S2 Respiratory: Yes: Regular, CTA Bilaterally Gastrointestinal: Yes: Normal Bowel Sounds, Soft Renal/: Yes: WNL Musculoskeletal: Yes: WNL Extremities: Yes: WNL Edema: No Peripheral Pulses WNL: Yes Integumentary: Yes: WNL Neurological: Yes: Alert, Oriented, Weakness (trace Lt LE weakness) ...Motor Strength: WNL Psychiatric: Yes: Alert, Oriented Labs: CBC, BMP 09/24/17 18:00 09/24/17 18:06 CBC,CMP WBC 6.0 K/mm3 (4.0-10.0) D 09/24/17 18:00 RBC 4.89 M/mm3 (3.60-5.2) 09/24/17 18:00 Hgb 14.5 GM/dL (10.7-15.3) 09/24/17 18:00 Hct 43.3 % (32.4-45.2) 09/24/17 18:00 MCV 88.4 fl (80-96) 09/24/17 18:00 MCH 29.6 pg (25.7-33.7) 09/24/17 18:00 MCHC 33.5 g/dl (32.0-36.0) 09/24/17 18:00 RDW 12.8 % (11.6-15.6) 09/24/17 18:00 Plt Count 198 K/MM3 (134-434) 09/24/17 18:00 MPV 7.6 fl (7.5-11.1) 09/24/17 18:00 Neutrophils % 54.6 % (42.8-82.8) 09/24/17 18:00 Lymphocytes % 34.7 % (8-40) 09/24/17 18:00 Monocytes % 8.4 % (3.8-10.2) 09/24/17 18:00 Eosinophils % 1.4 % (0-4.5) 09/24/17 18: Basophils % 0.9 % (0-2.0) 09/24/17 18:00 Sodium 142 mmol/L (136-145) 09/24/17 18:06 Potassium 3.6 mmol/L (3.5-5.1) 09/24/17 18:06 Chloride 106 mmol/L (98-107) 09/24/17 18:06 Carbon Dioxide 27 mmol/L (21-32) 09/24/17 18:06 Anion Gap 9 (8-16) 09/24/17 18:06 BUN 8 mg/dL (7-18) 09/24/17 18:06 Creatinine 0.9 mg/dL (0.55-1.02) 09/24/17 18:06 Creat Clearance w eGFR > 60 (>60) 09/24/17 18:06 Random Glucose 101 mg/dL (74-106) 09/24/17 18:06 Calcium 9.7 mg/dL (8.5-10.1) 09/24/17 18:06 Total Bilirubin 0.9 mg/dL (0.2-1.0) 09/24/17 18:06 AST 15 U/L (15-37) 09/24/17 18:06 ALT 27 U/L (12-78) 09/24/17 18:06 Alkaline Phosphatase 90 U/L (45-117) 09/24/17 18:06 Creatine Kinase 153 IU/L (26-192) 09/24/17 18:06 Creatine Kinase Index 0.7 % (0.0-5.0) 09/24/17 18:06 CK-MB (CK-2) 1.205 ng/mL (0.5-3.6) 09/24/17 18:06 Troponin I 0.05 ng/ml (0.00-0.05) 09/24/17 18:06 Total Protein 7.8 g/dl (6.4-8.2) 09/24/17 18:06 Albumin 4.3 g/dl (3.4-5.0) 09/24/17 18:06 Active Medications Chlorhexidine Gluconate (Hibiclens For Decolonization -) 1 applic TP HS YUDITH Nicardipine HCl 25 mg/ (Dextrose) 250 mls @ 25 mls/hr IVPB TITR YUDITH; 2.5 MG/HR PRN Reason: Protocol Last Admin: 09/24/17 23:00 Dose: 2.5 mg/hr, 25 mls/hr Mupirocin (Bactroban Ointment (For Decolonization) -) 1 applic NS BID YUDITH Stop: 09/30/17 09:59 Vital Signs Period Temp Pulse Resp BP Sys/Be Pulse Ox Last 24 Hr 98.2 F-98.4 F 65-89 13-18 142-166/81-96 98-99 Imaging - Results Cat Scan: Report Reviewed Problem List - Problems (1) Headache Code(s): R51 - HEADACHE Qualifiers: Headache type: unspecified Headache chronicity pattern: acute headache Intractability: not intractable Qualified Code(s): R51 - Headache (2) Hemorrhagic cerebrovascular accident (CVA) Code(s): I61.9 - NONTRAUMATIC INTRACEREBRAL HEMORRHAGE, UNSPECIFIED (3) Left arm weakness Code(s): R29.898 - OTH SYMPTOMS AND SIGNS INVOLVING THE MUSCULOSKELETAL SYSTEM (4) Left leg weakness Code(s): R29.898 - OTH SYMPTOMS AND SIGNS INVOLVING THE MUSCULOSKELETAL SYSTEM (5) Right pontine stroke Code(s): I63.50 - CEREB INFRC DUE TO UNSP OCCLS OR STENOS OF UNSP CEREB ARTERY (6) Hyperlipidemia Code(s): E78.5 - HYPERLIPIDEMIA, UNSPECIFIED Qualifiers: Hyperlipidemia type: pure hypercholesterolemia Qualified Code(s): E78.00 - Pure hypercholesterolemia, unspecified; E78.0 - Pure hypercholesterolemia Assessment/Plan 57 damir PMH HTN, HLD, Lt pontine CVA in 08/19/17 with mild residual left sided weakness who presented to ED with c/o vision changes and headache found to hve new lt occipital hemorrhage and now admitted to ICU for observation. Plan: -Neuro and neurosurgery following -Maintain Cardene drip for BPGoal <140 -HOB elevated -Hold ASA -Cont statin and anti lipid meds -Hold Cozaar while on Cardene drip. -Neuro checks q2 -monitor for renewed headache vision changes and weakness -DVT and GI prophylaxis. Crystal Jones, CORYP CC time 35mins
[2017-09-25 06:43] LABS: BASO % 0.7 % (0-2.0); EOS % 2.3 % (0-4.5); HEMATOCRIT 40.5 % (32.4-45.2); HEMOGLOBIN 13.8 GM/dL (10.7-15.3); LYMPH % 41.8 % (8-40); MCH 29.9 pg (25.7-33.7); MEAN CELL VOLUME 87.9 fl (80-96); MEAN PLT VOLUME 7.4 fl (7.5-11.1); MONO % 11.1 % (3.8-10.2); NEUT % 44.1 % (42.8-82.8); PLATELET COUNT 182 K/MM3 (134-434); RBC 4.61 M/mm3 (3.60-5.2); RDW 12.9 % (11.6-15.6); WHITE BLOOD COUNT 4.2 K/mm3 (4.0-10.0)
[2017-09-25 07:13] LABS: CHLORIDE 107 mmol/L (98-107); POTASSIUM 3.6 mmol/L (3.5-5.1); SODIUM 142 mmol/L (136-145)
[2017-09-25 07:18] LABS: INR 1.08 (0.82-1.09); PROTHROMBIN TIME (PATIENT) 12.2 SEC (9.98-11.88)
--- NOTE | 2017-09-25 07:25 | PN ---
Progress Note, Physician History of Present Illness: 24 HR EVENTS Patient received from ED, on nicardipine ggt, neuro exam wnl, anisocoria unchanged per patient's lifelong baseline. SUBJECTIVE 24 HOUR I/O None reported - Current Medication List Current Medications: Active Medications Chlorhexidine Gluconate (Hibiclens For Decolonization -) 1 applic TP HS YUDITH Nicardipine HCl 25 mg/ (Dextrose) 250 mls @ 25 mls/hr IVPB TITR YUDITH; 2.5 MG/HR PRN Reason: Protocol Last Titration: 09/25/17 04:00 Dose: 0 mg/hr, 0 mls/hr Mupirocin (Bactroban Ointment (For Decolonization) -) 1 applic NS BID YUDITH Stop: 09/30/17 09:59 - Objective Vital Signs: Vital Signs Temperature 98.6 F 09/25/17 06:00 Pulse Rate 66 09/25/17 06:00 Respiratory Rate 20 09/25/17 06:00 Blood Pressure 137/36 09/25/17 06:00 O2 Sat by Pulse Oximetry (%) 99 09/25/17 00:30 Constitutional: Yes: Well Nourished, No Distress, Calm Eyes: Yes: Conjunctiva Clear, EOM Intact, Other (anisocoria stated chronic since childhood) HENT: Yes: Atraumatic, Normocephalic Neck: Yes: Supple, Trachea Midline Cardiovascular: Yes: Regular Rate and Rhythm Respiratory: Yes: Regular, CTA Bilaterally Gastrointestinal: Yes: Normal Bowel Sounds, Soft Extremities: Yes: WNL Edema: No Integumentary: Yes: WNL Neurological: Yes: Alert, Oriented, Cran Nerves II-XII Intact, Pre-Existing Deficit (slight left foot, stated but not detected on exam). No: Aphasia, Ataxia, Dysarthria, Facial Droop, Numbness, Paresthesia, Tingling Psychiatric: Yes: Alert, Oriented Labs: CBC, BMP 09/25/17 05:10 INR, PTT INR 1.13 (0.82-1.09) 09/24/17 21:32 Assessment/Plan 57 YOF with h/o HTN, HLD, left pontine CVA on 08/19/17 with mild residual left sided weakness, in ICU for observation after vision changes and headache found to have left occipital hemorrhage. NEURO #Left occipital ICH. Currently asymptomatic, normal neuro exam. -Neuro and neurosurgery following -Stop Cardene ggt -Resume home losartan dose -HOB elevated 60 degrees -Hold ASA -Neuro checks q2h, monitor for vision/PATEL/focal neuro changes -MRI/MRA ordered CARDS #HTN, up to 166/93 in ED. S/P nifedipine in ED, now switching to home meds. -Cardiology following -Continue home losartan -May eventually add other BP meds to maintain SBP <140 #HLD -Resume home atorvastatin dose HEME #Hx of anemia -Normal Hb today -Monitor H&H FEN -NPO -speech and swallow consult -no fluids indicated at this time -Continue to monitor lytes and replete prn PPX -SCDs -GI prophylaxis -Physical therapy consult DISPO ICU care
[2017-09-25 07:35] LABS: ALBUMIN 3.6 g/dl (3.4-5.0); ALK PHOS 83 U/L (45-117); ANION GAP 6 (8-16); BLOOD UREA NITROGEN 7 mg/dL (7-18); CALCIUM 8.9 mg/dL (8.5-10.1); CO2 29 mmol/L (21-32); CREATININE 0.8 mg/dL (0.55-1.02); GLUCOSE,RANDOM 86 mg/dL (74-106); MAGNESIUM 2.2 mg/dL (1.8-2.4); PHOSPHOROUS 3.7 mg/dL (2.5-4.9); SGOT/AST 16 U/L (15-37); SGPT/ALT 21 U/L (12-78); TOT PROT 6.6 g/dl (6.4-8.2)
--- NOTE | 2017-09-25 07:52 | PN ---
Teaching Attending Note Name of Resident: Pravin Diaz ATTENDING PHYSICIAN STATEMENT I saw and evaluated the patient. I reviewed the resident's note and discussed the case with the resident. I agree with the resident's findings and plan as documented. SUBJECTIVE: OBJECTIVE: Vital Signs Temperature 98.6 F 09/25/17 06:00 Pulse Rate 66 09/25/17 06:00 Respiratory Rate 20 09/25/17 06:00 Blood Pressure 137/36 09/25/17 06:00 O2 Sat by Pulse Oximetry (%) 99 09/25/17 00:30 CBCD WBC 4.2 K/mm3 (4.0-10.0) 09/25/17 05:10 RBC 4.61 M/mm3 (3.60-5.2) 09/25/17 05:10 Hgb 13.8 GM/dL (10.7-15.3) 09/25/17 05:10 Hct 40.5 % (32.4-45.2) 09/25/17 05:10 MCV 87.9 fl (80-96) 09/25/17 05:10 MCHC 34.0 g/dl (32.0-36.0) 09/25/17 05:10 RDW 12.9 % (11.6-15.6) 09/25/17 05:10 Plt Count 182 K/MM3 (134-434) 09/25/17 05:10 MPV 7.4 fl (7.5-11.1) L 09/25/17 05:10 CMP Sodium 142 mmol/L (136-145) 09/25/17 05:10 Potassium 3.6 mmol/L (3.5-5.1) 09/25/17 05:10 Chloride 107 mmol/L (98-107) 09/25/17 05:10 Carbon Dioxide 29 mmol/L (21-32) 09/25/17 05:10 Anion Gap 6 (8-16) L 09/25/17 05:10 BUN 7 mg/dL (7-18) 09/25/17 05:10 Creatinine 0.8 mg/dL (0.55-1.02) 09/25/17 05:10 Creat Clearance w eGFR > 60 (>60) 09/25/17 05:10 Random Glucose 86 mg/dL (74-106) 09/25/17 05:10 Calcium 8.9 mg/dL (8.5-10.1) 09/25/17 05:10 Total Bilirubin 1.0 mg/dL (0.2-1.0) 09/25/17 05:10 AST 16 U/L (15-37) 09/25/17 05:10 ALT 21 U/L (12-78) 09/25/17 05:10 Alkaline Phosphatase 83 U/L (45-117) 09/25/17 05:10 Total Protein 6.6 g/dl (6.4-8.2) 09/25/17 05:10 Albumin 3.6 g/dl (3.4-5.0) 09/25/17 05:10 CARDIAC ENZYMES Creatine Kinase 153 IU/L (26-192) 09/24/17 18:06 Troponin I 0.05 ng/ml (0.00-0.05) 09/24/17 18:06 Current Medications Generic Name Dose Route Start Last Admin Trade Name Freq PRN Reason Stop Dose Admin Chlorhexidine Gluconate 1 applic 09/25/17 22:00 Hibiclens For Decolonization - TP HS YUDITH Nicardipine HCl 25 mg/ 250 mls @ 25 mls/hr 09/24/17 22:00 09/25/17 04:00 Dextrose IVPB 0 mg/hr TITR YUDITH 0 mls/hr Protocol Titration 2.5 MG/HR Mupirocin 1 applic 09/25/17 10:00 Bactroban Ointment (For Decolonization) - NS 09/30/17 09:59 BID [facility] Home Medications Medication Instructions Recorded Aspirin [ASA -] 325 mg PO DAILY #30 tablet 08/21/17 Atorvastatin Ca [Lipitor] 80 mg PO HS #60 tablet 08/21/17 Ezetimibe [Zetia -] 10 mg PO DAILY #30 tablet 08/21/17 Losartan Potassium [Cozaar -] 50 mg PO DAILY #30 tablet 08/21/17 Pantoprazole Sodium [Protonix -] 40 mg PO DAILY #30 tablet.ec 08/21/17 CT of the head: Left occipital hemorrhage ASSESSMENT AND PLAN: Patient is a 57yo Female with PMHx of CVA with residual L sided weakness, HTN, anemia presented to the ER with sudden onset of PATEL with visual changes and was found to have an acute L occipital hemorrhagic stroke # Acute L occipital Hemorrhage- neurochecks as per ICU . elevated HOB. Neuro and neurosurg consulted. echo/carotid/TSH/lipid panel ordered. hold asa at this time. s/p CVA " right Pontine infarct" Aug 19 patient currently on aspirin daily. # HTN Uncontrolled: on nicardipine ggt keep SBP < 140. DVT ppx- SCD
[2017-09-25 09:06] LABS: CHOLESTEROL 93 mg/dL (50-200); TRIGLYCERIDES 69 mg/dL (35-160)
[2017-09-25 09:11] LABS: HDL CHOLESTEROL 39 mg/dL (40-60); LDL CHOLESTEROL (ONLY SJRH) 45 mg/dL (5-100)
[2017-09-25] MEDS ORDERED: POTASSIUM CHLORIDE TABS 20 MEQ TABLET.ER (FP) PO ONE (09:30)
[2017-09-25] MEDS ORDERED: INSULIN (NOVOLOG MIX 70/30) 100 UNITS/ML MDV SQ ONE (10:09)
--- NOTE | 2017-09-25 11:18 | CONSULT ---
Admitting History and Physical - Primary Care Physician PCP: Sparkle Mattson - Admission History of Present Illness: Per EMR: HISTORY OF PRESENT ILLNESS: The patient is a 57 yo f w/ PMH HTN, CVA w/ residual left sided weakness who comes into the ED c/o vision changes and headache for the last 2 days. Patient states that her symptoms began Friday when she experienced visual changes in the right upper outer quadrant of her vision. Patient describes these changes as "jagged edges with different colors in them." On friday night into friday, the patient began to develop a sudden onset, 9/10 in intensity headache which involved her whole head and was worst in the occipital region. Over the course of the day, the headache increased in intensity and became associated with nausea and diarrhea. Patient states her headache is no longer present, but continues to experience visual changes which she now describes as "shadows and colors." Patient denies chest pain, SOB, dizziness, weakness. CT showing 2.4x 1.3x 1.3 cm hemorrhage in the left occipital horn Pt known to me from recent admission. 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[employer] History - Admission Reason For Visit: CVA/HEADACHE - Diagnostics CT Scan: Report Reviewed ( CT showing 2.4x 1.3x 1.3 cm hemorrhage in the left occipital horn) - General Mental Status: Alert and Oriented, Awake and Alert, Able to Follow Commands Attention: Intact Ability to Follow Directions: Excellent - Hearing Hearing: Normal Speech Evaluation - Communication Primary Language: K[place]YARWANDA Communication: Yes: Within Normal Limits Oral Expression Ability: Yes: No Impairment - Speech Production Able to Make Needs Known: Yes: WNL Intelligibility: Yes: WNL - Speech Characteristics Voice Loudness: Normal Voice Pitch: Yes: Normal Voice Phonatory-based Quality: Yes: Normal Speech Pattern: Normal Speech Clarity: < 100% Nasal Resonance: Normal Articulation: Yes: Precise, Imprecise (Very slight articulatory imprecision) Rate of Speech: Intact - Language/Auditory Comprehension Follows: Yes: 2 Stage Simple Commands - Language/Verbal Expression Able to Respond to Simple Queries: Yes: WNL Able to Communicate Wants and Needs: Yes: WNL Functional Communication Status: Yes: WNL - Memory/Perception oil heaterman Memory: Yes: WNL Short Term Memory: Yes: WNL - Swallow Evaluation/Bedside Assessment Current Nutritional Intake: Regular, Thin Liquids Oral Secretions: Yes: WFL Dentition: Yes: Adequate Facial Symmetry at Rest: Facial Droop Left (baseline) Facial Symmetry on Retraction: Symmetrical Facial Movement: Controlled Sensation: Normal Against Resistance Opening: Normal Against Resistance Closing: Normal Pucker Lips: Normal Smile: Normal Lingual Movement: Normal, Symmetric Velopharyngeal Movement: Normal Laryngeal Elevation: WFL Laryngeal Movement: Able to Palpate Rate of Intake: WFL Bolus Size: WFL Labial Seal: WFL Chewing: WFL Oral Prep Time: WFL A-P Transit: WFL Timing of Swallow: WFL Coughing/Throat Clear: No Change in Voice: No Recommendations - Speech Evaluation, Impression/Plan Impression: Speech,language,swallowing,cognition WNL. - Dysphagia Impressions/Plan Swallowing Skills: WFL Dysphagia Impressions: No Impairment *Silent aspiration: cannot be R/O at bedside - Recommendations Diet Consistency: Regular Medication Administration: Whole with water Liquids: Thin Liquids
--- NOTE | 2017-09-25 11:28 | CON.CARD ---
Consult Consult Specialty:: Cardiology Referred by:: ICU Reason for Consultation:: Hemorrhagic stroke - History of Present Illness Chief Complaint: Headache and blurry vision History of Present Illness: HPI 57 year old female history of recent acute pontine stroke, HTN/HCVD, Hyperlipidemia called office with right-sided headache radiating to the occiput and right blurry vision with nausea since improving, referred to ED and found to have acute right occipital hemorrhage, MRI pending. She denies CV sxs chest pain, dyspnea, near or true syncope, palpitations, orthopnea, PND or LE edema. 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[employer] Home Medications - Allergies Allergies/Adverse Reactions: Allergies Allergy/AdvReac Type Severity Reaction Status Date / Time No Known Allergies Allergy Verified 09/24/17 17:32 - Home Medications Home Medications: Ambulatory Orders Aspirin [ASA -] 325 mg PO DAILY #30 tablet 08/21/17 Atorvastatin Ca [Lipitor] 80 mg PO HS #60 tablet 08/21/17 Ezetimibe [Zetia -] 10 mg PO DAILY #30 tablet 08/21/17 Losartan Potassium [Cozaar -] 50 mg PO DAILY #30 tablet 08/21/17 Pantoprazole Sodium [Protonix -] 40 mg PO DAILY #30 tablet.ec 08/21/17 Review of Systems - Review of Systems Eyes: reports: Blurred Vision Neurological: reports: Headache Vital Signs: Vital Signs Temperature 98.6 F 09/25/17 06:00 Pulse Rate 66 09/25/17 08:00 Respiratory Rate 16 09/25/17 08:00 Blood Pressure 137/81 09/25/17 08:00 O2 Sat by Pulse Oximetry (%) 99 09/25/17 00:30 Constitutional: Yes: No Distress, Calm Neck: Yes: Supple Respiratory: Yes: Regular, CTA Bilaterally Gastrointestinal: Yes: Normal Bowel Sounds, Soft Cardiovascular: Yes: Regular Rate and Rhythm JVD: No Carotid Bruit: No Heart Sounds: Yes: S1, S2 Edema: No - Other Data Labs, Other Data: CBC, BMP 09/25/17 05:10 09/25/17 05:10 INR, PTT INR 1.08 (0.82-1.09) 09/25/17 05:10 Troponin, BNP 09/24/17 18:06 Troponin I 0.05 Troponin, BNP 09/24/17 18:06 Troponin I 0.05 Imaging - Results Cat Scan: Report Reviewed (CT head s/f 2.4x 1.3x 1.3 cm hemorrhage abutting the trigone and left occipital horn of the left lateral ventricle with scant perihemorrhage edema) Problem List - Problems (1) Hypertensive cardiomyopathy Code(s): I11.9 - HYPERTENSIVE HEART DISEASE WITHOUT HEART FAILURE; I43 - CARDIOMYOPATHY IN DISEASES CLASSIFIED ELSEWHERE Qualifiers: Heart failure presence: without heart failure Qualified Code(s): I11.9 - Hypertensive heart disease without heart failure; I43 - Cardiomyopathy in diseases classified elsewhere; I43 - Cardiomyopathy in diseases classified elsewhere; I43 - Cardiomyopathy in diseases classified elsewhere; I43 - Cardiomyopathy in diseases classified elsewhere (2) Hemorrhagic cerebrovascular accident (CVA) Code(s): I61.9 - NONTRAUMATIC INTRACEREBRAL HEMORRHAGE, UNSPECIFIED (3) Right pontine stroke Code(s): I63.50 - CEREB INFRC DUE TO UNSP OCCLS OR STENOS OF UNSP CEREB ARTERY (4) Hyperlipidemia Code(s): E78.5 - HYPERLIPIDEMIA, UNSPECIFIED Qualifiers: Hyperlipidemia type: pure hypercholesterolemia Qualified Code(s): E78.00 - Pure hypercholesterolemia, unspecified; E78.0 - Pure hypercholesterolemia Assessment/Plan 08/19/17 Normal LV size and fxn, mild-modMR, mild TR, mild CHANDA 1. Acute left occipital lobe hemorrhage etiologies include underlying avm, venous hge, less likely mass with minimal edema surrounding hge, no mass effect/ shift 2. H/o pontine stroke 2. HTN/HCVD 3. Hyperlipidemia P:1. D/c ASA 325 qd, Continue Lipitor 20 qd per new lipid panel, resume losartan 50 qd 2. Weaned off Cardene gtt 3. 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 Outpatient LUIGI previously recommended by neurology, but patient hesitant 6. Mechanical DVT and GI prophylaxis
--- NOTE | 2017-09-25 11:50 | EKG ---
Test Reason : Blood Pressure : / mmHG Vent. Rate : 069 BPM Atrial Rate : 069 BPM P-R Int : 172 ms QRS Dur : 084 ms QT Int : 396 ms P-R-T Axes : 050 008 023 degrees QTc Int : 424 ms NORMAL SINUS RHYTHM MINIMAL VOLTAGE CRITERIA FOR LVH, MAY BE NORMAL VARIANT T WAVE ABNORMALITY, CONSIDER LATERAL ISCHEMIA ABNORMAL ECG WHEN COMPARED WITH ECG OF 20-AUG-2017 09:40, T WAVE INVERSION LESS EVIDENT IN LATERAL LEADS Confirmed by ZELDA DAVIS MD ([id number]) on 09/25/2017 11:50:08 AM Referred By: Confirmed By:ZELDA DAVIS MD
[2017-09-25] MEDS: MUPIROCIN 2% TOPICAL OINTMENT FOR DECOLONIZATION NS SCH ×2 (12:22→21:23)
[2017-09-25] MEDS: LOSARTAN POTASSIUM 50 MG TABLET (FP) PO SCH (12:22)
--- NOTE | 2017-09-25 16:03 | PN ---
Progress Note (short form) - Note Progress Note: 4:04 pm: Patient is currently asymptomatic, vitals stable. Discussed with Dr. Heath: MRI brain with contrast and MRA without contrast. Added Keppra 500 mg PO BID for seizure prophylaxis and Protonix 40mg PO Daily for GI prophylaxis. Avoid Aspirin, plavix. Discontinue Lipitor as LDL is only 44. BP goal < 160/90 mmHg. Informed Primary team.
--- NOTE | 2017-09-25 16:05 | CON.NEURO ---
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 [employer] Home Medications - Allergies Allergies/Adverse Reactions: Allergies Allergy/AdvReac Type Severity Reaction Status Date / Time No Known Allergies Allergy Verified 09/24/17 17:32 - Home Medications Home Medications: Ambulatory Orders Aspirin [ASA -] 325 mg PO DAILY #30 tablet 08/21/17 Atorvastatin Ca [Lipitor] 80 mg PO HS #60 tablet 08/21/17 Ezetimibe [Zetia -] 10 mg PO DAILY #30 tablet 08/21/17 Losartan Potassium [Cozaar -] 50 mg PO DAILY #30 tablet 08/21/17 Pantoprazole Sodium [Protonix -] 40 mg PO DAILY #30 tablet.ec 08/21/17 Physical Exam-Neuro Vital Signs: Vital Signs Temperature 98.0 F 09/25/17 14:00 Pulse Rate 71 09/25/17 14:00 Respiratory Rate 20 09/25/17 14:00 Blood Pressure 130/94 09/25/17 14:00 O2 Sat by Pulse Oximetry (%) 99 09/25/17 00:30 Labs: CBC, BMP 09/25/17 05:10 09/25/17 05:10 INR, PTT INR 1.08 (0.82-1.09) 09/25/17 05:10 Assessment/Plan cc Headhace and found to have left occipital trigone area HPI 57 Year old female admitted for left occpital headahce and found to hav bleed. She has history of brain stem stroke , recently and was on aspirin statin and bp medicaiton. Patient do not have seizure, and her vision is improving and no headhace at this time. She is schedule for mri of brain and mra of brain. Patient has recently had mri of brain and cta of brain and neck and it was unremarkable for any AVM OR aneurysm. Past Medical History as above NKDA - = Ambulatory Orders Aspirin [ASA -] 325 mg PO DAILY #30 tablet 08/21/17 Atorvastatin Ca [Lipitor] 80 mg PO HS #60 tablet 08/21/17 Ezetimibe [Zetia -] 10 mg PO DAILY #30 tablet 08/21/17 Losartan Potassium [Cozaar -] 50 mg PO DAILY #30 tablet 08/21/17 Pantoprazole Sodium [Protonix -] 40 mg PO DAILY #30 tablet.ec 08/21/17 SH,ROS FH reviewed in chart Neurological Examination Alert oriented x 3, EOMI, AND PUPIL is reactive, no face asymmetyr, speech i snormal visual field is normal by confrontation, her heahdace is better bp at admission was 153/96 moving all extremity sensation is normal reflex are symmetrical Ct head reviewed nad showed left occpital trigone area small bleed Assessment Left occpital trigone area bleed , neurologically stable , bp is stable. Rencet mri of brain and cta of neck and brain wa sunremarkable Plan-- Suggest to add mri with contrast for underlying malignancy - hold aspirin - low dose keppra can also be given 500 mg po bid - gi prophylaxis -LDL is 40s that is also risk factor along with apsirin and high bp may be risk factor , suggest to hold lipitor for now - neuro check - waiting for neurosurgery consult - mri ofbrain with contrast and mra Thanking you so much Juan Manuel Baez MD
--- NOTE | 2017-09-25 17:08 | PN ---
<Pravin Diaz - Last Filed: 09/25/17 17:09> Physical Exam: SUBJECTIVE: Patient seen and examined at bedside. States that when she started having the headache, she had vision changes in her R peripheral vision as well as seeing brightly colored objects. Currently patient is asymptomatic without any chest pain, SOB, fever, nausea, vomiting, or subjective changes in neurologic status. OBJECTIVE: Vital Signs Period Temp Pulse Resp BP Sys/Be Pulse Ox Last 24 Hr 98.0 F-98.6 F 60-89 13-31 105-166/36-96 95-99 GENERAL: The patient is awake, alert, and fully oriented, in no acute distress. HEAD: Normal with no signs of trauma. 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 NECK: Trachea midline, full range of motion, supple. LUNGS: Breath sounds equal, clear to auscultation bilaterally, no wheezes, no crackles, no accessory muscle use. HEART: Regular rate and rhythm, S1, S2 without murmur, rub or gallop. ABDOMEN: Soft, nontender, nondistended, normoactive bowel sounds, no guarding, no ebound, no hepatosplenomegaly, no masses. EXTREMITIES: 2+ pulses, warm, well-perfused, no edema. NEUROLOGICAL: Cranial nerves II through XII grossly intact. Normal speech, gait not observed. PSYCH: Normal mood, normal affect. SKIN: Warm, dry, normal turgor, no rashes or lesions noted Laboratory Results - last 24 hr 09/24/17 09/24/17 09/24/17 18:00 18:06 18:06 WBC 6.0 D RBC 4.89 Hgb 14.5 Hct 43.3 MCV 88.4 MCH 29.6 MCHC 33.5 RDW 12.8 Plt Count 198 MPV 7.6 Neutrophils % 54.6 Lymphocytes % 34.7 Monocytes % 8.4 Eosinophils % 1.4 Basophils % 0.9 PT with INR 12.40 H INR 1.10 PTT (Actin FS) Sodium 142 Potassium 3.6 Chloride 106 Carbon Dioxide 27 Anion Gap 9 BUN 8 Creatinine 0.9 Creat Clearance w eGFR > 60 Random Glucose 101 Calcium 9.7 Phosphorus Magnesium Total Bilirubin 0.9 AST 15 ALT 27 Alkaline Phosphatase 90 Creatine Kinase 153 Creatine Kinase Index 0.7 CK-MB (CK-2) 1.205 Troponin I 0.05 Total Protein 7.8 Albumin 4.3 Triglycerides Cholesterol Total LDL Cholesterol HDL Cholesterol Blood Type Antibody Screen 09/24/17 09/24/17 09/25/17 21:32 21:32 05:10 WBC 4.2 RBC 4.61 Hgb 13.8 Hct 40.5 MCV 87.9 MCH 29.9 MCHC 34.0 RDW 12.9 Plt Count 182 MPV 7.4 L Neutrophils % 44.1 Lymphocytes % 41.8 H D Monocytes % 11.1 H Eosinophils % 2.3 Basophils % 0.7 PT with INR 12.80 H INR 1.13 PTT (Actin FS) 35.4 H Sodium Potassium Chloride Carbon Dioxide Anion Gap BUN Creatinine Creat Clearance w eGFR Random Glucose Calcium Phosphorus Magnesium Total Bilirubin AST ALT Alkaline Phosphatase Creatine Kinase Creatine Kinase Index CK-MB (CK-2) Troponin I Total Protein Albumin Triglycerides Cholesterol Total LDL Cholesterol HDL Cholesterol Blood Type O POSITIVE Antibody Screen Negative 09/25/17 09/25/17 05:10 05:10 WBC RBC Hgb Hct MCV MCH MCHC RDW Plt Count MPV Neutrophils % Lymphocytes % Monocytes % Eosinophils % Basophils % PT with INR 12.20 H INR 1.08 PTT (Actin FS) Sodium 142 Potassium 3.6 Chloride 107 Carbon Dioxide 29 Anion Gap 6 L BUN 7 Creatinine 0.8 Creat Clearance w eGFR > 60 Random Glucose 86 Calcium 8.9 Phosphorus 3.7 Magnesium 2.2 Total Bilirubin 1.0 AST 16 ALT 21 Alkaline Phosphatase 83 Creatine Kinase Creatine Kinase Index CK-MB (CK-2) Troponin I Total Protein 6.6 Albumin 3.6 Triglycerides 69 Cholesterol 93 Total LDL Cholesterol 45 HDL Cholesterol 39 L Blood Type Antibody Screen Active Medications Generic Name Dose Route Start Last Admin Trade Name Freq PRN Reason Stop Dose Admin Chlorhexidine Gluconate 1 applic 09/25/17 22:00 Hibiclens For Decolonization - TP HS YUDITH Levetiracetam 500 mg 09/25/17 22:00 Keppra - PO BID YUDITH Losartan Potassium 50 mg 09/25/17 12:15 09/25/17 12:22 Cozaar - PO 50 mg DAILY YUDITH Administration Mupirocin 1 applic 09/25/17 10:00 09/25/17 12:22 Bactroban Ointment (For Decolonization) - NS 09/30/17 09:59 1 applic BID YUDITH Administration Pantoprazole Sodium 40 mg 09/25/17 16:15 Protonix - PO DAILY YUDITH ASSESSMENT/PLAN: The patient is a 57 year old female with a history of HTN, ischemic stroke, anemia, admitted to the hospital and managed by ICU for acute hemorrhagic stroke shortly after another admission for ischemic stroke #Hemorrhagic Stroke: in occipital lobe, may be due to underlying condition such as AVM -Neuro workup per Dr. Baez - appreciate consult. -MRI brain with contrast and MRA without contrast. -HOLD ASA -Keppra 500 mg PO BID-- seizure prophylaxis -Protonix 40mg PO Daily-- -Lipid panel - low cholesterol -physical therapy #Hypertension: -cozaar 50mg PO QD #FEN -No standing fluids -Can resume diet -replete lytes in AM #Prophylaxis -SCDs #Disposition: -continue to monitor in ICU Visit type - Emergency Visit Emergency Visit: No - New Patient This patient is new to me today: Yes Date on this admission: 09/25/17 - Critical Care Critical Care patient: Yes Total Critical Care Time (in minutes): 35 Critical Care Statement: The care of this patient involved high complexity decision making to prevent further life threatening deterioration of the patient 's condition and/or to evaluate & treat vital organ system(s) failure or risk of failure. <Sparkle Mattson - Last Filed: 09/25/17 21:27> Physical Exam: Patient seen and examined agree with the plan. Vital Signs Temperature 98.0 F 09/25/17 14:00 Pulse Rate 65 09/25/17 20:00 Respiratory Rate 18 09/25/17 20:58 Blood Pressure 115/74 09/25/17 20:00 O2 Sat by Pulse Oximetry (%) 99 09/25/17 20:58 CBCD WBC 4.2 K/mm3 (4.0-10.0) 09/25/17 05:10 RBC 4.61 M/mm3 (3.60-5.2) 09/25/17 05:10 Hgb 13.8 GM/dL (10.7-15.3) 09/25/17 05:10 Hct 40.5 % (32.4-45.2) 09/25/17 05:10 MCV 87.9 fl (80-96) 09/25/17 05:10 MCHC 34.0 g/dl (32.0-36.0) 09/25/17 05:10 RDW 12.9 % (11.6-15.6) 09/25/17 05:10 Plt Count 182 K/MM3 (134-434) 09/25/17 05:10 MPV 7.4 fl (7.5-11.1) L 09/25/17 05:10 CMP Sodium 142 mmol/L (136-145) 09/25/17 05:10 Potassium 3.6 mmol/L (3.5-5.1) 09/25/17 05:10 Chloride 107 mmol/L (98-107) 09/25/17 05:10 Carbon Dioxide 29 mmol/L (21-32) 09/25/17 05:10 Anion Gap 6 (8-16) L 09/25/17 05:10 BUN 7 mg/dL (7-18) 09/25/17 05:10 Creatinine 0.8 mg/dL (0.55-1.02) 09/25/17 05:10 Creat Clearance w eGFR > 60 (>60) 09/25/17 05:10 Random Glucose 86 mg/dL (74-106) 09/25/17 05:10 Calcium 8.9 mg/dL (8.5-10.1) 09/25/17 05:10 Total Bilirubin 1.0 mg/dL (0.2-1.0) 09/25/17 05:10 AST 16 U/L (15-37) 09/25/17 05:10 ALT 21 U/L (12-78) 09/25/17 05:10 Alkaline Phosphatase 83 U/L (45-117) 09/25/17 05:10 Total Protein 6.6 g/dl (6.4-8.2) 09/25/17 05:10 Albumin 3.6 g/dl (3.4-5.0) 09/25/17 05:10 CARDIAC ENZYMES Creatine Kinase 153 IU/L (26-192) 09/24/17 18:06 Troponin I 0.05 ng/ml (0.00-0.05) 09/24/17 18:06 Current Medications Generic Name Dose Route Start Last Admin Trade Name Freq PRN Reason Stop Dose Admin Chlorhexidine Gluconate 1 applic 02/15/18 22:00 09/25/17 21:23 Hibiclens For Decolonization - TP 1 applic HS YUDITH Administration Levetiracetam 500 mg 09/25/17 22:00 09/25/17 21:19 Keppra - PO 500 mg BID YUDITH Administration Losartan Potassium 50 mg 09/25/17 12:15 09/25/17 12:22 Cozaar - PO 50 mg DAILY YUDITH Administration Mupirocin 1 applic 09/25/17 10:00 09/25/17 21:23 Bactroban Ointment (For Decolonization) - NS 09/30/17 09:59 1 applic BID YUDITH Administration Pantoprazole Sodium 40 mg 09/25/17 16:15 09/25/17 19:15 Protonix - PO 40 mg DAILY YUDITH Administration Home Medications Medication Instructions Recorded Aspirin [ASA -] 325 mg PO DAILY #30 tablet 08/21/17 Atorvastatin Ca [Lipitor] 80 mg PO HS #60 tablet 08/21/17 Ezetimibe [Zetia -] 10 mg PO DAILY #30 tablet 08/21/17 Losartan Potassium [Cozaar -] 50 mg PO DAILY #30 tablet 08/21/17 Pantoprazole Sodium [Protonix -] 40 mg PO DAILY #30 tablet.ec 08/21/17
[2017-09-25] MEDS: PANTOPRAZOLE 40 MG TABLET (FP) PO SCH (19:15)
[2017-09-25] MEDS: levETIRAcetam 500 MG TABLET (FP) PO SCH (21:19)
[2017-09-25] MEDS: CHLORHEXIDINE GLUCONATE 4% CLEANSER FOR DECOLONIZATION TP SCH (21:23)
[2017-09-25] MEDS ORDERED: ATORVASTATIN CA 20 MG TABLET (FP) PO SCH (22:00)
[2017-09-26 06:38] LABS: BASO % 0.7 % (0-2.0); HEMATOCRIT 41.8 % (32.4-45.2); HEMOGLOBIN 13.9 GM/dL (10.7-15.3); LYMPH % 30.2 % (8-40); MCH 29.6 pg (25.7-33.7); MCHC 33.3 g/dl (32.0-36.0); MEAN CELL VOLUME 88.8 fl (80-96); MEAN PLT VOLUME 7.8 fl (7.5-11.1); MONO % 9.3 % (3.8-10.2); NEUT % 57.8 % (42.8-82.8); PLATELET COUNT 182 K/MM3 (134-434); RDW 13.3 % (11.6-15.6); WHITE BLOOD COUNT 3.9 K/mm3 (4.0-10.0)
--- NOTE | 2017-09-26 06:59 | PN ---
Physical Exam: SUBJECTIVE: Pt had slightly hypotensive blood pressures to 107 systolic blood pressures (currently 139/80). No events overnight or any complaints. Pt reports feeling well and denies any visual disturbances, headaches, changes in sensation , and changes in motor strength OBJECTIVE: Vital Signs Period Temp Pulse Resp BP Sys/Be Pulse Ox Last 24 Hr 97.6 F-98.6 F 56-79 16-31 100-141/64-94 99 GENERAL: NAD, awake, alert, oriented x3 HEENT: EOMI, Anisocoria (baseline) with reaction to light, sclera anicteric, moist mucosa, no JVD LUNGS: CTA bilaterally, no wheezes, no crackles, no accessory muscle use. HEART: RRR, S1, S2 without murmur, rub or gallop. ABDOMEN: Soft, nontender, nondistended, normoactive bowel sounds, no guarding, no rebound, no hepatomegaly EXTREMITIES: 2+ DP pulses, warm, well-perfused, no edema. NEUROLOGICAL: Cranial nerves II through XII grossly intact. Normal speech, normal gait. Strength 5/5 throughout all aspects of upper and lower extremities. Sensation grossly intact. Babinski downgoing PSYCH: Normal mood, normal affect. SKIN: Warm, dry, normal turgor, no rashes or lesions noted Laboratory Results - last 24 hr 09/25/17 09/25/17 09/25/17 05:10 05:10 05:10 WBC 4.2 RBC 4.61 Hgb 13.8 Hct 40.5 MCV 87.9 MCH 29.9 MCHC 34.0 RDW 12.9 Plt Count 182 MPV 7.4 L Neutrophils % 44.1 Lymphocytes % 41.8 H D Monocytes % 11.1 H Eosinophils % 2.3 Basophils % 0.7 PT with INR 12.20 H INR 1.08 Sodium 142 Potassium 3.6 Chloride 107 Carbon Dioxide 29 Anion Gap 6 L BUN 7 Creatinine 0.8 Creat Clearance w eGFR > 60 Random Glucose 86 Calcium 8.9 Phosphorus 3.7 Magnesium 2.2 Total Bilirubin 1.0 AST 16 ALT 21 Alkaline Phosphatase 83 Total Protein 6.6 Albumin 3.6 Triglycerides 69 Cholesterol 93 Total LDL Cholesterol 45 HDL Cholesterol 39 L Active Medications Generic Name Dose Route Start Last Admin Trade Name Freq PRN Reason Stop Dose Admin Chlorhexidine Gluconate 1 applic 09/25/17 22:00 09/25/17 21:23 Hibiclens For Decolonization - TP 1 applic HS YUDITH Administration Levetiracetam 500 mg 09/25/17 22:00 09/25/17 21:19 Keppra - PO 500 mg BID YUDITH Administration Losartan Potassium 50 mg 09/25/17 12:15 09/25/17 12:22 Cozaar - PO 50 mg DAILY YUDITH Administration Mupirocin 1 applic 09/25/17 10:00 09/25/17 21:23 Bactroban Ointment (For Decolonization) - NS 09/30/17 09:59 1 applic BID YUDITH Administration Pantoprazole Sodium 40 mg 09/25/17 16:15 09/25/17 19:15 Protonix - PO 40 mg DAILY YUDITH Administration ASSESSMENT/PLAN: 57 F with h/o HTN, HLD, left pontine CVA on 08/19/17, who presented with visual changes and headache found to have L occipital hemorrhage. Neurology 1) Left occipital ICH --Currently asymptomatic and unequivocal neuro exam --Neurology on board; recs reviewed and appreciated --Continue to monitor BP control --HOB elevated --Continue to hold ASA --Neuro checks to monitor for headaches and focal neurological deficits --MRA/MRV ruled out any AVM --Keppra 500mg BID for seizure prophylaxis Cardiac 1) Hypertension --Max 166/93 in the ED during this visit --Continues Cozaar 50mg PO qDaily --Cardiology --Target <160/90 2) HLD --Hold lipitor, LDL 40 this admission; in combination with aspirin may increase changes of ICH Hematology 1) History of chronic anemia --H/H stable throughout admission --No further workup to be done FEN Fluids: None indicated currently Electrolyte abnormalities: None currently Diet: Sodium-controlled diet PPX DVT - SCDs Deconditioning: PT consul Dispo: Transfer out of ICU Case discussed with Dr. Amie Almendarez, DO - IM PGY-1 Visit type - Emergency Visit Emergency Visit: No - New Patient This patient is new to me today: No - Critical Care Critical Care patient: No
[2017-09-26 07:01] LABS: ALBUMIN 3.7 g/dl (3.4-5.0); ANION GAP 9 (8-16); BILIRUBIN,TOTAL 0.8 mg/dL (0.2-1.0); BLOOD UREA NITROGEN 14 mg/dL (7-18); CALCIUM 8.8 mg/dL (8.5-10.1); CHLORIDE 107 mmol/L (98-107); CO2 27 mmol/L (21-32); CREATININE 0.9 mg/dL (0.55-1.02); GLUCOSE,RANDOM 86 mg/dL (74-106); MAGNESIUM 2.2 mg/dL (1.8-2.4); PHOSPHOROUS 3.8 mg/dL (2.5-4.9); POTASSIUM 4.2 mmol/L (3.5-5.1); SGOT/AST 12 U/L (15-37); SGPT/ALT 20 U/L (12-78); SODIUM 143 mmol/L (136-145); TOT PROT 6.7 g/dl (6.4-8.2)
[2017-09-26 07:02] LABS: ALK PHOS 84 U/L (45-117)
[2017-09-26] MEDS ORDERED: HEMOQUE TEST 1 EACH EACH ONE ×2 (08:57→09:33)
[2017-09-26] MEDS: PANTOPRAZOLE 40 MG TABLET (FP) PO SCH ×2 (09:06→11:15)
[2017-09-26] MEDS: LOSARTAN POTASSIUM 50 MG TABLET (FP) PO SCH ×2 (09:06→11:14)
--- NOTE | 2017-09-26 10:39 | PN ---
Progress Note, Physician History of Present Illness: Left-sided headache and visual changes resolving, MRI confirms left occiptal bleed, negative MRA/MRV. - Current Medication List Current Medications: Active Medications Chlorhexidine Gluconate (Hibiclens For Decolonization -) 1 applic TP HS [facility] Last Admin: 09/25/17 21:23 Dose: 1 applic Levetiracetam (Keppra -) 500 mg PO BID [facility] Last Admin: 09/25/17 21:19 Dose: 500 mg Losartan Potassium (Cozaar -) 50 mg PO DAILY [facility] Last Admin: 09/25/17 12:22 Dose: 50 mg Mupirocin (Bactroban Ointment (For Decolonization) -) 1 applic NS BID [facility] Stop: 09/30/17 09:59 Last Admin: 09/25/17 21:23 Dose: 1 applic Pantoprazole Sodium (Protonix -) 40 mg PO DAILY [facility] Last Admin: 09/25/17 19:15 Dose: 40 mg - Objective Vital Signs: Vital Signs Temperature 98.5 F 09/26/17 06:00 Pulse Rate 63 09/26/17 06:00 Respiratory Rate 16 09/26/17 06:00 Blood Pressure 139/80 09/26/17 06:00 O2 Sat by Pulse Oximetry (%) 99 09/25/17 20:58 Constitutional: Yes: No Distress, Calm, Thin Neck: Yes: Supple Cardiovascular: Yes: Regular Rate and Rhythm Respiratory: Yes: Regular, CTA Bilaterally Gastrointestinal: Yes: Normal Bowel Sounds, Soft Edema: No Labs: CBC, BMP 09/26/17 06:15 09/26/17 06:15 INR, PTT INR 1.08 (0.82-1.09) 09/25/17 05:10 - ....Imaging EKG: Report Reviewed (Tele: SR, no PAF) Problem List - Problems (1) Hypertensive cardiomyopathy Code(s): I11.9 - HYPERTENSIVE HEART DISEASE WITHOUT HEART FAILURE; I43 - CARDIOMYOPATHY IN DISEASES CLASSIFIED ELSEWHERE Qualifiers: Heart failure presence: without heart failure Qualified Code(s): I11.9 - Hypertensive heart disease without heart failure; I43 - Cardiomyopathy in diseases classified elsewhere; I43 - Cardiomyopathy in diseases classified elsewhere; I43 - Cardiomyopathy in diseases classified elsewhere; I43 - Cardiomyopathy in diseases classified elsewhere (2) Hemorrhagic cerebrovascular accident (CVA) Code(s): I61.9 - NONTRAUMATIC INTRACEREBRAL HEMORRHAGE, UNSPECIFIED (3) Right pontine stroke Code(s): I63.50 - CEREB INFRC DUE TO UNSP OCCLS OR STENOS OF UNSP CEREB ARTERY (4) Hyperlipidemia Code(s): E78.5 - HYPERLIPIDEMIA, UNSPECIFIED Qualifiers: Hyperlipidemia type: pure hypercholesterolemia Qualified Code(s): E78.00 - Pure hypercholesterolemia, unspecified; E78.0 - Pure hypercholesterolemia Assessment/Plan 08/19/17 Normal LV size and fxn, mild-mod MR, mild TR, mild CHANDA 1. Acute left occipital lobe hemorrhage with negative brain MRA/MRV 2. H/o pontine stroke 2. HTN/HCVD 3. Hyperlipidemia P:1. Lipitor d/conchita per neuro, continue losartan 50 qd, Keppra seizure prophylaxis 2. Neuro checks qshift -transfer to floor 3. school lunch monitor r/o PAF, consider outpatient arrhythmia monitor if unremarkable 4. Outpatient LUIGI previously recommended by neurology, but patient hesitant 5. Mechanical DVT and GI prophylaxis
[2017-09-26] MEDS: levETIRAcetam 500 MG TABLET (FP) PO SCH ×3 (11:15→21:37)
--- NOTE | 2017-09-26 12:28 | PN ---
Teaching Attending Note Name of Resident: Pravin Almendarez ATTENDING PHYSICIAN STATEMENT I saw and evaluated the patient. I reviewed the resident's note and discussed the case with the resident. I agree with the resident's findings and plan as documented. SUBJECTIVE: Patient seen and examined in the ICU. Awake and alert. No CP or SOB. No PATEL or BOV. Intake & Output 09/23/17 09/24/17 09/25/17 09/26/17 23:59 23:59 23:59 23:59 Intake Total 400 120 Balance 400 120 Weight 161 lb 155 lb 6.4 oz 156 lb 11.2 oz Last Vital Signs Temp Pulse Resp BP Pulse Ox 98.5 F 63 16 139/80 99 09/26/17 06:00 09/26/17 06:00 09/26/17 06:00 09/26/17 06:00 09/25/17 20:58 Active Medications Generic Name Dose Route Start Last Admin Trade Name Freq PRN Reason Stop Dose Admin Chlorhexidine Gluconate 1 applic 09/25/17 22:00 09/25/17 21:23 Hibiclens For Decolonization - TP 1 applic HS YUDITH Administration Levetiracetam 500 mg 09/25/17 22:00 09/26/17 11:17 Keppra - PO 500 mg BID YUDITH Administration Losartan Potassium 50 mg 09/25/17 12:15 09/26/17 11:14 Cozaar - PO 50 mg DAILY YUDITH Administration Mupirocin 1 applic 09/25/17 10:00 09/25/17 21:23 Bactroban Ointment (For Decolonization) - NS 09/30/17 09:59 1 applic BID YUDITH Administration Pantoprazole Sodium 40 mg 09/25/17 16:15 09/26/17 11:15 Protonix - PO Not Given DAILY YUDITH Constitutional: Yes: Well Nourished, No Distress, Calm Eyes: Yes: Other (Anisocoria Rt pupil>Lt with minimal reaction to light; Lt pupil with nl reaction) HENT: Yes: Atraumatic, Normocephalic Neck: Yes: Supple, Trachea Midline Cardiovascular: Yes: Regular Rate and Rhythm, S1, S2 Respiratory: Yes: Regular, CTA Bilaterally Gastrointestinal: Yes: Normal Bowel Sounds, Soft Renal/: Yes: WNL Musculoskeletal: Yes: WNL Extremities: Yes: WNL Edema: No Peripheral Pulses WNL: Yes Integumentary: Yes: WNL Neurological: Yes: Alert, Oriented, Weakness (trace Lt LE weakness) ...Motor Strength: WNL Psychiatric: Yes: Alert, Oriented Labs: Laboratory Results - last 24 hr 09/26/17 09/26/17 09/26/17 06:15 06:15 09:03 WBC 3.9 L RBC 4.70 Hgb 13.9 Hct 41.8 MCV 88.8 MCH 29.6 MCHC 33.3 RDW 13.3 Plt Count 182 MPV 7.8 Neutrophils % 57.8 D Lymphocytes % 30.2 D Monocytes % 9.3 Eosinophils % 2.0 Basophils % 0.7 Sodium 143 Potassium 4.2 Chloride 107 Carbon Dioxide 27 Anion Gap 9 BUN 14 Creatinine 0.9 Creat Clearance w eGFR > 60 POC Glucometer [id number] Random Glucose 86 Calcium 8.8 Phosphorus 3.8 Magnesium 2.2 Total Bilirubin 0.8 AST 12 L ALT 20 Alkaline Phosphatase 84 Total Protein 6.7 Albumin 3.7 Problem List - Problems (1) Headache Code(s): R51 - HEADACHE Qualifiers: Headache type: unspecified Headache chronicity pattern: acute headache Intractability: not intractable Qualified Code(s): R51 - Headache (2) Hemorrhagic cerebrovascular accident (CVA) Code(s): I61.9 - NONTRAUMATIC INTRACEREBRAL HEMORRHAGE, UNSPECIFIED (3) Left arm weakness Code(s): R29.898 - OTH SYMPTOMS AND SIGNS INVOLVING THE MUSCULOSKELETAL SYSTEM (4) Left leg weakness Code(s): R29.898 - OTH SYMPTOMS AND SIGNS INVOLVING THE MUSCULOSKELETAL SYSTEM (5) Right pontine stroke Code(s): I63.50 - CEREB INFRC DUE TO UNSP OCCLS OR STENOS OF UNSP CEREB ARTERY (6) Hyperlipidemia Code(s): E78.5 - HYPERLIPIDEMIA, UNSPECIFIED Qualifiers: Hyperlipidemia type: pure hypercholesterolemia Qualified Code(s): E78.00 - Pure hypercholesterolemia, unspecified; E78.0 - Pure hypercholesterolemia Assessment/Plan Statin Monitor BP Off anti-platelet DVT and GI prophylaxis. Stroke unit monitoring Dr Holloway Critical care time spent in reviewing chart, evaluating patient and formulating plan - 36 minutes.
--- NOTE | 2017-09-26 15:11 | DS ---
Physical Exam: SUBJECTIVE: Patient seen and examined at bedside. Patient appears in no distress and is asymptomatic. Denies any chest pain, SOB, nausea, vomiting, diarrhea, weakness. Spoke with Dr. Cy Stafford (neurosurgery). As per neurosurgeon who examined patient 2 days prior, patient is stable and no further neurosurgical intervention will be pursued. All management will be outpatient and medical. Cleared for D/C from a neurosurgical perspective OBJECTIVE: Vital Signs Period Temp Pulse Resp BP Sys/Be Pulse Ox Last 24 Hr 97.6 F-98.5 F 56-76 16-31 100-139/64-91 99 PHYSICAL EXAM GENERAL: The patient is awake, alert, and fully oriented, in no acute distress. HEAD: Normal with no signs of trauma. 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 NECK: Trachea midline, full range of motion, supple. LUNGS: Breath sounds equal, clear to auscultation bilaterally, no wheezes, no crackles, no accessory muscle use. HEART: Regular rate and rhythm, S1, S2 without murmur, rub or gallop. ABDOMEN: Soft, nontender, nondistended, normoactive bowel sounds, no guarding, no ebound, no hepatosplenomegaly, no masses. EXTREMITIES: 2+ pulses, warm, well-perfused, no edema. NEUROLOGICAL: Cranial nerves II through XII grossly intact. Normal speech, gait not observed. Motor strength 5/5 b/l upper and lower extremities and face. PSYCH: Normal mood, normal affect. SKIN: Warm, dry, normal turgor, no rashes or lesions noted LABS Laboratory Results - last 24 hr 09/26/17 09/26/17 09/26/17 06:15 06:15 09:03 WBC 3.9 L RBC 4.70 Hgb 13.9 Hct 41.8 MCV 88.8 MCH 29.6 MCHC 33.3 RDW 13.3 Plt Count 182 MPV 7.8 Neutrophils % 57.8 D Lymphocytes % 30.2 D Monocytes % 9.3 Eosinophils % 2.0 Basophils % 0.7 Sodium 143 Potassium 4.2 Chloride 107 Carbon Dioxide 27 Anion Gap 9 BUN 14 Creatinine 0.9 Creat Clearance w eGFR > 60 POC Glucometer 138.70228 Random Glucose 86 Calcium 8.8 Phosphorus 3.8 Magnesium 2.2 Total Bilirubin 0.8 AST 12 L ALT 20 Alkaline Phosphatase 84 Total Protein 6.7 Albumin 3.7 IMAGING: CT HEAD (ADMISSION): In comparison to a prior CT study of 08/19/2017 interval development of an approximately 2.4 x 1.3 x 1.3 cm acute hemorrhage is seen abutting the trigone and left occipital horn of the left lateral ventricle. There is mild perihemorrhagic edema. A small amount of associated intraventricular blood is seen within the trigone of the left lateral ventricle. A small chronic left basal ganglia is again noted. A small late subacute right pontine infarct is seen which was acute at the time of an MRI study of 08/19/2017. There is no subdural fluid collection. No obstructive hydrocephalus is noted. There is no calvarial defect. MRI/MRA 09/25: In comparison to a prior CT study of 08/19/2017 interval development of an approximately 2.4 x 1.3 x 1.3 cm acute hemorrhage is seen abutting the trigone and left occipital horn of the left lateral ventricle. There is mild perihemorrhagic edema. A small amount of associated intraventricular blood is seen within the trigone of the left lateral ventricle. A small chronic left basal ganglia is again noted. A small late subacute right pontine infarct is seen which was acute at the time of an MRI study of 08/19/2017. There is no subdural fluid collection. No obstructive hydrocephalus is noted. There is no calvarial defect. Unremarkable MRA of the head. HOSPITAL COURSE: Date of Admission:09/24/17 The patient is a 57 female with a past medical history of CVA w/ residual left sided weakness 1 month ago who comes into the ED complaining of vision changes and headache for the last 2 days. Patient stated that her symptoms began Friday when she experienced visual changes in the right upper outer quadrant of her vision. Patient describes these changes as "jagged edges with different colors in them." On friday night into friday, the patient began to develop a sudden onset, 9/10 in intensity headache which involved her whole head and was worst in the occipital region. In the ED, patient had a CT head that revealed an occipital lobe cerebral hemorrhage. Patient's blood pressure was in the 150s systolic on admission. Patient was transferred to the ICU and started on nicardipine drip for BP. Aspirin was held. Lipid panel returned normal with a normal total cholesterol and LDL. Previous workup for ischemic stroke was performed 1 month ago and was not repeated (carotid doppler, echo, etc..). Neurology and neurosurgery were consulted. Patient was started on keppra for seizure prophylaxis and neurosurgery did not find any necessity for neurosurgical intervention. Overnight, patient became asymptomatic and back to her normal baseline. Headache had resolved. Patient had been off nicardipine drip with stable blood pressures overnight. Repeat imaging with MRI/MRA showed mild perihemorrhagic edema and stable hemorrhage that has not grown in size. She was started back on losartan 50mg QD. After discussion with neurosurgeon, who did not believe any surgical intervention was necessary, patient would be treated medically as an outpatient. She was discharged on 09/26/17 with a 2 week prescription for keppra for prophylaxis and referrals to neurology, hematology, and cardiology for stroke etiology work-up. Date of Discharge: 09/26/17 Minutes to complete discharge: 35 <Pravin Diaz - Last Filed: 09/26/17 15:15> Physical Exam: Patient seen and examined with the resident. Patient is comfortable, denies any headache, or any dizziness shortness of breath, Her blood pressure is controlled through out the time in ICU. Patient was recommended to follow up with salon coordinator for further w/u since this is the second stroke that patient experiences 1st one Ischemic and 2nd one hemorrhagic. Case was discussed with Intencivist, neurology and neurosurgeon. Will discharge the patient home with follow up visit in a week period with neurologist, neurosurgeons, and Administration Clerk for further w/u . Also follow up with welder apprentice gas. <Sparkle Mattson - Last Filed: 09/26/17 16:09> Discharge Summary Reason For Visit: CVA/HEADACHE Current Active Problems Headache (Acute) Hemorrhagic cerebrovascular accident (CVA) (Acute) Hypertensive cardiomyopathy (Acute) - Home Medications Comprehensive Discharge Medication List: Ambulatory Orders Losartan Potassium [Cozaar -] 50 mg PO DAILY #30 tablet 08/21/17 Pantoprazole Sodium [Protonix -] 40 mg PO DAILY #30 tablet.ec 08/21/17 Blood Pressure Test Kit-Medium [Blood Pressure Monitor] 1 each MC DAILY #1 kit 09/26/17 levETIRAcetam [Keppra -] 500 mg PO BID #28 tablet 09/26/17 <Pravin Diaz - Last Filed: 09/26/17 15:15> Current Active Problems Headache (Acute) Hemorrhagic cerebrovascular accident (CVA) (Acute) Hypertensive cardiomyopathy (Acute) - Home Medications Comprehensive Discharge Medication List: Ambulatory Orders Losartan Potassium [Cozaar -] 50 mg PO DAILY #30 tablet 08/21/17 Pantoprazole Sodium [Protonix -] 40 mg PO DAILY #30 tablet.ec 08/21/17 Blood Pressure Test Kit-Medium [Blood Pressure Monitor] 1 each MC DAILY #1 kit 09/26/17 levETIRAcetam [Keppra -] 500 mg PO BID #28 tablet 09/26/17 <Sparkle Mattson - Last Filed: 09/26/17 16:09> Condition: Improved - Instructions Diet, Activity, Other Instructions: You were admitted to the hospital for the treatment of acute cerebral hemorrhage. This means you had bleeding within your brain. The neurosurgeon examined you and determined that you do not need any neurosurgical intervention, and that you should be managed medically. In the hospital, we stopped your aspirin/plavix and controlled your blood pressure. Medical Recommendations: -Continue losartan 50mg once a day for your blood pressure. -Please check your blood pressure once a day and record the numbers. Take these with you to your doctor. 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 -Continue taking Keppra 500mg twice a day for seizure prophylaxis -Do not take aspirin or other blood thinners, atorvastatin or other statins, or ezetimibe at home anymore -You will need to have a trans-esophageal echocardiogram (ultrasound of your heart done through an endoscopy) by the web site designer. Please make an appointment with the web site designer to have this test performed. It is important to have it performed so that we can rule out any cardiac issues that could have contributed to your strokes. -Please make an appointment with the neurologist Dr. Baez within 1 week of discharge to follow up for your strokes -Please make an appointment with the salon coordinator Dr. Powell within 1 week of discharge to work up hematologic etiologies of stroke (VERY IMPORTANT) -Please make an appointment with the neurosurgeon Dr. Cy Stafford within 1 week of discharge -Please make an appointment with the web site designer Dr. Rodarte within 1 week of discharge for transesophageal echocardiogram -Please make an appointment with your primary care physician within 1 week of discharge Referrals: Juan Manuel Baez MD [Staff Physician] - 1 Week Pravin Urbina MD [Primary Care Provider] - 1 Week Maulik Powell MD [Staff Physician] - 1 Week Rudolph Rodarte MD [Staff Physician] - 1 Week Disposition: HOME This patient is new to me today: No Emergency Visit: No Critical Care patient: Yes Total Critical Care Time (in minutes): 35 Critical Care Statement: The care of this patient involved high complexity decision making to prevent further life threatening deterioration of the patient 's condition and/or to evaluate & treat vital organ system(s) failure or risk of failure. - Discharge Referral Referred to [facility] No <Pravin Diaz - Last Filed: 09/26/17 15:15>
--- NOTE | 2017-09-26 17:06 | PN ---
Progress Note (short form) - Note Progress Note: 57 Year old female admitted for left occpital headahce and found to hav bleed. She has history of brain stem stroke , recently and was on aspirin statin and bp medicaiton. Patient do not have seizure, and her vision is improving and no headhace at this time. She is schedule for mri of brain and mra of brain. Patient has recently had mri of brain and cta of brain and neck and it was unremarkable for any AVM OR aneurysm. no new complain and headache is better Neurological Examination Alert oriented x 3, bp wa s119/91 EOMI, AND PUPIL is reactive, no face asymmetyr, speech i snormal visual field is normal by confrontation, her heahdace is better bp at admission was 153/96 moving all extremity sensation is normal reflex are symmetrical Ct head reviewed nad showed left occpital trigone area small bleed mri of brain and mrv and mra was unremarkable Assessment Left occpital trigone area bleed , neurologically stable , bp is stable. mri of brain is unremarkable Plan-- - hold aspirin - continue keppra for three / four weeks - gi prophylaxis -LDL is 40s that is also risk factor along with apsirin and high bp may be risk factor , suggest to hold lipitor for now - Patient was advise to follow with me outpatient Thanking you so much Juan Manuel Baez MD
[2017-09-26] MEDS ORDERED: amLODIPine BESYLATE 5 MG TABLET (FP) PO ONE ×2 (19:30→20:15)
--- NOTE | 2017-09-26 20:13 | PN ---
Progress Note (short form) - Note Progress Note: Patient was supposed to be discharged home. Prior to discharge, her blood pressure ranges from 163-148 mmHg systolic and 90- 100mmHg diastolic. Hence will monitor her overnight for her BP. Discussed with Dr. Mattson.
[2017-09-26] MEDS: CHLORHEXIDINE GLUCONATE 4% CLEANSER FOR DECOLONIZATION TP SCH (21:37)
[2017-09-26] MEDS: MUPIROCIN 2% TOPICAL OINTMENT FOR DECOLONIZATION NS SCH (21:37)
[2017-09-27] MEDS ORDERED: MAG HYDROX/AL HYDROX/SIMETH 30 ML UNIT-DOSE CUP PO ONE (00:19)
[2017-09-27] MEDS ORDERED: ONDANSETRON 4 MG/2 ML VIAL IVPUSH ONE (00:20)
--- NOTE | 2017-09-27 03:08 | CONSULT ---
Consult - text type - Consultation Consultation Note: NEUROSURGERY CONSULTATION (PERFORMED ON 09/25/17) Karey Hernández is a pleasant 57 year old female who has recently been treated for a pontine cerebrovascular event and now presents with Left sided headaches. CT demonstrates a 2 cm hematoma within the Left Occipital lobe which appears to track towards the atrium (trigone) of the Left lateral ventricle. The patient is awake and alert in the ICU when I saw her and she was Neurologically non-focal. The clot itself isn't large enough nor causing mass effect that would mandate evacuation. Consideration for underlying pathology such as tumor, cavernous malformation or AVM is unlikely due to appearance of this region on MRI 2 weeks ago not revealing any suggestion of these pathologies. Although vasculitis, amyloid angiopathy and other etiologies may be in the differential diagnosis, the most likely cause would appear to be cerebrovascular associated with her hypertension and apparent microvascular disease. Treatment will most likely focus on cholesterol/lipid management and control of her hypertension. At this point, there is no acute Neurosurgical intervention which is indicated/ planned.
--- NOTE | 2017-09-27 09:24 | PN ---
Progress Note (short form) - Note Progress Note: Patient seen and examined in the ICU. Awake and alert. No CP or SOB. No PATEL or BOV. Had some nausea yesterday that has now resolved. Intake & Output 09/24/17 09/25/17 09/26/17 09/27/17 23:59 23:59 23:59 23:59 Intake Total 400 720 250 Balance 400 720 250 Weight 161 lb 155 lb 6.4 oz 156 lb 11.2 oz Last Vital Signs Temp Pulse Resp BP Pulse Ox 97.7 F 65 17 139/80 99 09/27/17 02:00 09/27/17 08:00 09/27/17 08:00 09/27/17 08:00 09/26/17 21:00 Active Medications Amlodipine Besylate (Norvasc -) 10 mg PO DAILY [facility] Chlorhexidine Gluconate (Hibiclens For Decolonization -) 1 applic TP HS [facility] Last Admin: 09/26/17 21:37 Dose: Not Given Levetiracetam (Keppra -) 500 mg PO BID [facility] Last Admin: 09/26/17 21:37 Dose: 500 mg Losartan Potassium (Cozaar -) 50 mg PO BID [facility] Mupirocin (Bactroban Ointment (For Decolonization) -) 1 applic NS BID [facility] Stop: 09/30/17 09:59 Last Admin: 09/26/17 21:37 Dose: Not Given Pantoprazole Sodium (Protonix -) 40 mg PO DAILY [facility] Last Admin: 09/26/17 11:15 Dose: Not Given Constitutional: Yes: Well Nourished, No Distress, Calm Eyes: Yes: Other (Anisocoria Rt pupil>Lt with minimal reaction to light; Lt pupil with nl reaction) HENT: Yes: Atraumatic, Normocephalic Neck: Yes: Supple, Trachea Midline Cardiovascular: Yes: Regular Rate and Rhythm, S1, S2 Respiratory: Yes: Regular, CTA Bilaterally Gastrointestinal: Yes: Normal Bowel Sounds, Soft Renal/: Yes: WNL Musculoskeletal: Yes: WNL Extremities: Yes: WNL Edema: No Peripheral Pulses WNL: Yes Integumentary: Yes: WNL Neurological: Yes: Alert, Oriented, Weakness (trace Lt LE weakness) ...Motor Strength: WNL Psychiatric: Yes: Alert, Oriented Labs: Laboratory Results - last 24 hr 09/26/17 09:03 POC Glucometer 138.44452 Problem List - Problems (1) Headache Code(s): R51 - HEADACHE Qualifiers: Headache type: unspecified Headache chronicity pattern: acute headache Intractability: not intractable Qualified Code(s): R51 - Headache (2) Hemorrhagic cerebrovascular accident (CVA) Code(s): I61.9 - NONTRAUMATIC INTRACEREBRAL HEMORRHAGE, UNSPECIFIED (3) Left arm weakness Code(s): R29.898 - OTH SYMPTOMS AND SIGNS INVOLVING THE MUSCULOSKELETAL SYSTEM (4) Left leg weakness Code(s): R29.898 - OTH SYMPTOMS AND SIGNS INVOLVING THE MUSCULOSKELETAL SYSTEM (5) Right pontine stroke Code(s): I63.50 - CEREB INFRC DUE TO UNSP OCCLS OR STENOS OF UNSP CEREB ARTERY (6) Hyperlipidemia Code(s): E78.5 - HYPERLIPIDEMIA, UNSPECIFIED Qualifiers: Hyperlipidemia type: pure hypercholesterolemia Qualified Code(s): E78.00 - Pure hypercholesterolemia, unspecified; E78.0 - Pure hypercholesterolemia Assessment/Plan Statin Noted Cozaar added due to elevated BP Off anti-platelet DVT and GI prophylaxis. Neuro monitoring / Stroke unit Dr Holloway
[2017-09-27] MEDS ORDERED: LOSARTAN POTASSIUM 50 MG TABLET (FP) PO SCH (10:00)
[2017-09-27] MEDS: MUPIROCIN 2% TOPICAL OINTMENT FOR DECOLONIZATION NS SCH (10:59)
[2017-09-27] MEDS: levETIRAcetam 500 MG TABLET (FP) PO SCH (11:00)
[2017-09-27] MEDS: PANTOPRAZOLE 40 MG TABLET (FP) PO SCH (11:00)
--- NOTE | 2017-09-27 11:24 | DS ---
Physical Exam: SUBJECTIVE: Patient seen and examined Patient is comfortable with no acute distress. Patient is comfortable with no acute distress, no shortness of breath. no headache. OBJECTIVE: Vital Signs Temperature 97.7 F 09/27/17 02:00 Pulse Rate 65 09/27/17 08:00 Respiratory Rate 17 09/27/17 09:00 Blood Pressure 139/80 09/27/17 08:00 O2 Sat by Pulse Oximetry (%) 99 09/27/17 09:00 PHYSICAL EXAM GENERAL: The patient is awake, alert, and fully oriented, in no acute distress. HEAD: Normal with no signs of trauma. EYES: PERRL, extraocular movements intact, sclera anicteric, conjunctiva clear. ENT: Ears normal, oropharynx clear without exudates, moist mucous membranes. NECK: Trachea midline, full range of motion, supple. LUNGS: Breath sounds equal, clear to auscultation bilaterally, no wheezes, no crackles, no accessory muscle use. HEART: Regular rate and rhythm, S1, S2 without murmur, rub or gallop. ABDOMEN: Soft, nontender, nondistended, normoactive bowel sounds, no guarding, no rebound, no hepatosplenomegaly, no masses. EXTREMITIES: 2+ pulses, warm, well-perfused, no edema. NEUROLOGICAL: Cranial nerves II through XII grossly intact. Normal speech, gait is steady PSYCH: Normal mood, normal affect. SKIN: Warm, dry, normal turgor, no rashes or lesions noted. LABS Laboratory Results - last 24 hr 09/26/17 09:03 POC Glucometer 138.75241 CBCD WBC 3.9 K/mm3 (4.0-10.0) L 09/26/17 06:15 RBC 4.70 M/mm3 (3.60-5.2) 09/26/17 06:15 Hgb 13.9 GM/dL (10.7-15.3) 09/26/17 06:15 Hct 41.8 % (32.4-45.2) 09/26/17 06:15 MCV 88.8 fl (80-96) 09/26/17 06:15 MCHC 33.3 g/dl (32.0-36.0) 09/26/17 06:15 RDW 13.3 % (11.6-15.6) 09/26/17 06:15 Plt Count 182 K/MM3 (134-434) 09/26/17 06:15 MPV 7.8 fl (7.5-11.1) 09/26/17 06:15 CMP Sodium 143 mmol/L (136-145) 09/26/17 06:15 Potassium 4.2 mmol/L (3.5-5.1) 09/26/17 06:15 Chloride 107 mmol/L (98-107) 09/26/17 06:15 Carbon Dioxide 27 mmol/L (21-32) 09/26/17 06:15 Anion Gap 9 (8-16) 09/26/17 06:15 BUN 14 mg/dL (7-18) 09/26/17 06:15 Creatinine 0.9 mg/dL (0.55-1.02) 09/26/17 06:15 Creat Clearance w eGFR > 60 (>60) 09/26/17 06:15 Random Glucose 86 mg/dL (74-106) 09/26/17 06:15 Calcium 8.8 mg/dL (8.5-10.1) 09/26/17 06:15 Total Bilirubin 0.8 mg/dL (0.2-1.0) 09/26/17 06:15 AST 12 U/L (15-37) L 09/26/17 06:15 ALT 20 U/L (12-78) 09/26/17 06:15 Alkaline Phosphatase 84 U/L (45-117) 09/26/17 06:15 Total Protein 6.7 g/dl (6.4-8.2) 09/26/17 06:15 Albumin 3.7 g/dl (3.4-5.0) 09/26/17 06:15 CARDIAC ENZYMES Creatine Kinase 153 IU/L (26-192) 09/24/17 18:06 Troponin I 0.05 ng/ml (0.00-0.05) 09/24/17 18:06 Current Medications Generic Name Dose Route Start Last Admin Trade Name Freq PRN Reason Stop Dose Admin Amlodipine Besylate 10 mg 09/27/17 18:00 Norvasc - PO DAILY YUDITH Losartan Potassium 50 mg 09/27/17 10:00 09/27/17 10:59 Cozaar - PO Not Given BID YUDITH Pantoprazole Sodium 40 mg 09/28/17 10:00 Protonix - PO DAILY [facility] Home Medications Medication Instructions Recorded Losartan Potassium [Cozaar -] 50 mg PO DAILY #30 tablet 08/21/17 Pantoprazole Sodium [Protonix -] 40 mg PO DAILY #30 tablet.ec 08/21/17 Blood Pressure Test Kit-Medium 1 each MC DAILY #1 kit 09/26/17 [Blood Pressure Monitor] levETIRAcetam [Keppra -] 500 mg PO BID #28 tablet 09/26/17 HOSPITAL COURSE: Date of Admission:09/24/17 Date of Discharge: 09/27/17 The patient is a 57 female with a past medical history of CVA w/ residual left sided weakness 1 month ago who comes into the ED complaining of vision changes and headache for the last 2 days. Patient stated that her symptoms began Friday when she experienced visual changes in the right upper outer quadrant of her vision. Patient describes these changes as "jagged edges with different colors in them." On friday night into friday, the patient began to develop a sudden onset, 9/10 in intensity headache which involved her whole head and was worst in the occipital region. In the ED, patient had a CT head that revealed an occipital lobe cerebral hemorrhage. Patient's blood pressure was in the 150s systolic on admission. Patient was transferred to the ICU and started on nicardipine drip for BP. Aspirin was held. Lipid panel returned normal with a normal total cholesterol and LDL. Previous workup for ischemic stroke was performed 1 month ago and was not repeated (carotid doppler, echo, etc..). Neurology and neurosurgery were consulted. Patient was started on keppra for seizure prophylaxis and neurosurgery did not find any necessity for neurosurgical intervention. Overnight, patient became asymptomatic and back to her normal baseline. Headache had resolved. Patient had been off nicardipine drip with stable blood pressure but overnight patient had an elevated blood pressure that the discharge was cancelled. . Repeat imaging with MRI/MRA showed mild perihemorrhagic edema and stable hemorrhage that has not grown in size. She was started back on losartan 50mg , increased to BID dosing since night BP was elevated and was added Amlodopine 10mg at night time daily. After discussion with neurosurgeon, who did not believe any surgical intervention was necessary, patient would be treated medically as an outpatient. She was discharged on 09/27/17 with a 3 week prescription for keppra for prophylaxis and referrals to neurology, hematology, and cardiology for stroke etiology work-up. Date of Discharge: 09/27/17 Minutes to complete discharge: 45 Discharge Summary Reason For Visit: CVA/HEADACHE Current Active Problems Headache (Acute) Hemorrhagic cerebrovascular accident (CVA) (Acute) Hypertensive cardiomyopathy (Acute) Condition: Improved - Instructions Diet, Activity, Other Instructions: You were admitted to the hospital for the treatment of acute cerebral hemorrhage. This means you had bleeding within your brain. The neurosurgeon examined you and determined that you do not need any neurosurgical intervention, and that you should be managed medically. In the hospital, we stopped your aspirin/plavix and controlled your blood pressure. Medical Recommendations: -Continue losartan 50mg 2x per day for your blood pressure. Take one in the morning and the second dose at 5pm -Please check your blood pressure 2x per day and record the numbers and take these with you to your doctor. -We will prescribe you a blood pressure machine that you can case picker from the pharmacy. -Continue taking Keppra 500mg twice a day for seizure prophylaxis for 3 weeks -Do not take aspirin or other blood thinners, atorvastatin or other statins, or ezetimibe at home anymore -You will need to have a trans-esophageal echocardiogram (ultrasound of your heart done through an endoscopy) by the inspector balance bridge. Please make an appointment with the inspector balance bridge to have this test performed. It is important to have it performed so that we can rule out any cardiac issues that could have contributed to your strokes. -Please make an appointment with the neurologist Dr. Baez within 1 week of discharge to follow up for your strokes -Please make an appointment with the digital marketing analyst Dr. Powell within 1 week of discharge to work up hematologic etiologies of stroke (VERY IMPORTANT) -Please make an appointment with the neurosurgeon Dr. Cy Stafford within 1 week of discharge -Please make an appointment with the inspector balance bridge Dr. Rodarte within 1 week of discharge for transesophageal echocardiogram -Please make an appointment with your primary care physician within 1 week of discharge Referrals: Juan Manuel Baez MD [Staff Physician] - 1 Week Pravin Urbina MD [Primary Care Provider] - 1 Week Maulik Powell MD [Staff Physician] - 1 Week Rudolph Rodarte MD [Staff Physician] - 1 Week Disposition: HOME - Home Medications Comprehensive Discharge Medication List: Ambulatory Orders Losartan Potassium [Cozaar -] 50 mg PO DAILY #30 tablet 08/21/17 Pantoprazole Sodium [Protonix -] 40 mg PO DAILY #30 tablet.ec 08/21/17 Blood Pressure Test Kit-Medium [Blood Pressure Monitor] 1 each MC DAILY #1 kit 09/26/17 levETIRAcetam [Keppra -] 500 mg PO BID #28 tablet 09/26/17 This patient is new to me today: No Emergency Visit: Yes ED Registration Date: 09/24/17 Care time: The patient presented to the Emergency Department on the above date and was hospitalized for further evaluation of their emergent condition. Critical Care patient: No - Discharge Referral Referred to [facility] No
--- NOTE | 2017-09-27 14:54 | PN ---
Progress Note, Physician Chief Complaint: Not in distress Events noted History of Present Illness: Patient was seen and examined. Awake and alert. Chart was reviewed Denies chest pain, SOB or palpitations - Current Medication List Current Medications: Active Medications Amlodipine Besylate (Norvasc -) 10 mg PO DAILY [facility] Losartan Potassium (Cozaar -) 50 mg PO BID [facility] Last Admin: 09/27/17 10:59 Dose: Not Given Pantoprazole Sodium (Protonix -) 40 mg PO DAILY [facility] - Objective Vital Signs: Vital Signs Temperature 98.1 F 09/27/17 10:00 Pulse Rate 84 09/27/17 12:00 Respiratory Rate 18 09/27/17 12:00 Blood Pressure 133/91 09/27/17 12:00 O2 Sat by Pulse Oximetry (%) 99 09/27/17 09:00 Constitutional: Yes: Well Nourished Eyes: Yes: PERRL HENT: Yes: Atraumatic Neck: Yes: Supple Cardiovascular: Yes: Regular Rate and Rhythm, S1, S2 Respiratory: Yes: CTA Bilaterally Gastrointestinal: Yes: Normal Bowel Sounds, Soft. No: Tenderness Edema: No Additional Findings/Remarks: - Review of Systems Constitutional: denies: Chills, Fever Cardiovascular: denies: Shortness of Breath. denies: Chest Pain, Palpitations Respiratory: denies: Cough, SOB, SOB on Exertion. denies: Hemoptysis, Orthopnea , PND, Wheezing Gastrointestinal: denies: Abdominal Pain, Constipation, Diarrhea, Melena, Nausea , Rectal Bleeding, Vomiting Genitourinary: denies: Dysuria, Hematuria Neurological: denies: Dizziness, Headache, Seizure, Syncope Labs: CBC, BMP 09/26/17 06:15 09/26/17 06:15 Problem List - Problems (1) HTN (hypertension) Code(s): I10 - ESSENTIAL (PRIMARY) HYPERTENSION Qualifiers: Hypertension type: essential hypertension Qualified Code(s): I10 - Essential (primary) hypertension (2) Hemorrhagic cerebrovascular accident (CVA) Code(s): I61.9 - NONTRAUMATIC INTRACEREBRAL HEMORRHAGE, UNSPECIFIED (3) Hypertensive cardiomyopathy Code(s): I11.9 - HYPERTENSIVE HEART DISEASE WITHOUT HEART FAILURE; I43 - CARDIOMYOPATHY IN DISEASES CLASSIFIED ELSEWHERE Qualifiers: Heart failure presence: without heart failure Qualified Code(s): I11.9 - Hypertensive heart disease without heart failure; I43 - Cardiomyopathy in diseases classified elsewhere; I43 - Cardiomyopathy in diseases classified elsewhere; I43 - Cardiomyopathy in diseases classified elsewhere; I43 - Cardiomyopathy in diseases classified elsewhere (4) Right pontine stroke Code(s): I63.50 - CEREB INFRC DUE TO UNSP OCCLS OR STENOS OF UNSP CEREB ARTERY (5) Hyperlipidemia Code(s): E78.5 - HYPERLIPIDEMIA, UNSPECIFIED Qualifiers: Hyperlipidemia type: pure hypercholesterolemia Qualified Code(s): E78.00 - Pure hypercholesterolemia, unspecified; E78.0 - Pure hypercholesterolemia Assessment/Plan 1. Acute left occipital lobe hemorrhage with negative brain MRA/MR 2. History of pontine stroke 2. HTN/HCVD 3. Hyperlipidemia PLAN: 1. Lipitor was stopped, but to be restarted as outpatient. Continue Losartan 50 qd and Keppra for seizure prophylaxis 2. Monitor neuro status 3. 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 Outpatient [facility] previously recommended by neurology if patient agreeable. Patient is to see Dr. Rudolph Rodarte as outpatient 5. DVT and GI prophylaxis Further plans are to follow. Patient was seen and examined for 30 minutes Carl Cifuentes MD
[2017-09-27 15:33] VITALS: BP 122/67; TEMP 98
[2017-09-27 15:38] VITALS: PULSE 65
[2017-09-27] MEDS ORDERED: amLODIPine BESYLATE 10 MG TABLET (FP) PO SCH (18:00)
[2017-09-28] MEDS ORDERED: PANTOPRAZOLE 40 MG TABLET (FP) PO SCH (10:00)
== END 2017-09-27 15:56 | disposition home or self-care (01) | DRG 64 ==
LOC: JER 16:26 → JERBED 22:34 → UNDOADMIN 23:00 → JICU 23:51
PROVIDERS: ADMIT Internal Medicine; ATTEND Internal Medicine
DX: I61.9 Nontraumatic intracerebral hemorrhage, unspecified (principal); I63.50 Cerebral infarction due to unspecified occlusion or stenosis of unspecified cerebral artery; I69.354 Hemiplegia and hemiparesis following cerebral infarction affecting left non-dominant side; E78.5 Hyperlipidemia, unspecified; D64.9 Anemia, unspecified; D25.9 Leiomyoma of uterus, unspecified; R29.704 NIHSS score 4; H53.8 Other visual disturbances; I11.9 Hypertensive heart disease without heart failure
CPT/HCPCS: 36415; 70450-TC; 70544-TC; 70552-TC; 80053; 80061; 82550; 82553; 82962; 83721; 83735; 84100; 84484; 85025; 85610; 85730; 86850; 86900; 86901; 93005; 93010; 97116-GP; 97161-GP; 99283-25

== ENCOUNTER 2024-05-11 10:36 | Observation (INO) | payer BC, OTHER ==
[2024-05-11 11:16] VITALS: BMI 32.8
[2024-05-11 11:33] LABS: HEMATOCRIT 45.5 % (32.4-45.2); HEMOGLOBIN 14.8 G/dL (10.7-15.3); MCH 29.8 pg (25.7-33.7); MCHC 32.6 g/dl (32.0-36.0); MEAN CELL VOLUME 91.5 fl (80-96); MEAN PLT VOLUME 8.1 fl (7.5-11.1); PLATELET COUNT 181.4 10^3/uL (134-434); RBC 4.97 10^6/uL (3.60-5.2); RDW 13.8 % (11.6-15.6); WHITE BLOOD COUNT 6.2 10^3/uL (4.0-10.8)
[2024-05-11 11:34] LABS: INR 1.05 (0.83-1.09); PROTHROMBIN TIME (PATIENT) 11.9 SEC (9.7-13.0)
[2024-05-11 11:37] LABS: ACTIVATED PTT 33.8 SECONDS (25.2-36.5)
[2024-05-11 11:44] LABS: ALBUMIN 4.5 g/dl (3.4-5.0); BILIRUBIN,TOTAL 0.8 mg/dl (0.2-1); CALCIUM 9.8 mg/dl (8.5-10.1); TOT PROT 7.2 g/dl (6.4-8.2)
[2024-05-11 12:04] LABS: PLATELET ESTIMATE ADEQUATE
[2024-05-11] MEDS ORDERED: ASPIRIN 81 MG CHEWABLE TABLETS ONE (12:32)
[2024-05-11] MEDS: ASPIRIN 81 MG CHEWABLE TABLETS PO ONE (12:34)
[2024-05-11] MEDS: ATORVASTATIN CA 80 MG TABLET (FP) PO ONE (15:05)
[2024-05-11] MEDS ORDERED: ATORVASTATIN CA 80 MG TABLET (FP) ONE (15:08)
[2024-05-11] MEDS: LOSARTAN 50MG/HCTZ 12.5MG 1 TAB PO SCH (17:47)
[2024-05-11] MEDS: MAG HYDROX/ALH/SMC/DPHA/LIDO 240 ML MOUTHWASH MM SCH (18:06)
[2024-05-11] MEDS ORDERED: hydrALAZINE HCL 20 MG/ML VIAL IVPB PRN (20:12)
[2024-05-11] MEDS: CARVEDILOL 6.25 MG TABLET (FP) PO SCH (22:42)
[2024-05-11] MEDS ORDERED: REFRIGERATED ANITBIOTICS ONE ×2 (22:57→23:06)
[2024-05-12 08:11] LABS: ALBUMIN 4.2 g/dl (3.4-5.0); BILIRUBIN,TOTAL 0.9 mg/dl (0.2-1); CALCIUM 9.5 mg/dl (8.5-10.1); PHOSPHOROUS 3.4 (2.5-4.9); POTASSIUM 3.3 mmol/L (3.5-5.1); TOT PROT 6.8 g/dl (6.4-8.2)
[2024-05-12 09:22] LABS: BASO % 0.6 % (0-2.0); RDW 13.4 % (11.6-15.6); WHITE BLOOD COUNT 5.1 K/mm3 (4.0-10.0)
[2024-05-12 09:25] LABS: EOS % 1.4 % (0-4.5); HEMATOCRIT 42.3 % (32.4-45.2); HEMOGLOBIN 14.4 GM/dL (10.7-15.3); LYMPH % 25.5 % (8-40); MCHC 33.9 g/dl (32.0-36.0); MEAN CELL VOLUME 88.4 fl (80-96); MEAN PLT VOLUME 7.5 fl (7.5-11.1); MONO % 6.5 % (3.8-10.2); PLATELET COUNT 206 10^3/uL (134-434); RBC 4.78 M/mm3 (3.60-5.2)
[2024-05-12] MEDS: POTASSIUM CHLORIDE ORAL LIQUID 20 MEQ/15 ML PO ONE (09:25)
[2024-05-12 11:04] VITALS: PULSE 82; TEMP 98.6
[2024-05-12] MEDS ORDERED: REFRIGERATED ANITBIOTICS ONE (13:12)
[2024-05-12 14:13] VITALS: BP 126/79; RESP 79
== END 2024-05-12 16:16 | disposition home or self-care (01) ==
LOC: FER 10:36 → INTOOBSV 13:21 → FM/S 13:21
PROVIDERS: ADMIT Internal Medicine; ATTEND Internal Medicine
DX: K06.1 Gingival enlargement (principal); I10 Essential (primary) hypertension; E78.5 Hyperlipidemia, unspecified; I69.354 Hemiplegia and hemiparesis following cerebral infarction affecting left non-dominant side; Z91.148 Patient's other noncompliance with medication regimen for other reason; D64.9 Anemia, unspecified; Z85.3 Personal history of malignant neoplasm of breast
CPT/HCPCS: 36415; 70450-TC; 70551-TC; 80053; 80061; 82550; 82962; 83036; 83735; 84100; 84484; 85025; 85027; 85610; 85730; 86850; 86900; 86901; 93005; 97116-GP; 97162-GP; 99285-25; G0378